=== PATIENT | female | born 1970 | race Caucasian/White ===

== ENCOUNTER → 2018-02-03 07:08 | Outpatient (CLI) | payer OTHER, SELFPAY ==
--- NOTE | 2018-02-03 11:09 | STRESSREP ---
Stress Test Report Date: 02/03/2018 Procedure: Exercise tolerance test/imaging study Indications: Chest pain Consent: Per the patient Procedure: The patient exercised on a Jaxson protocol for 7 minutes completing Stage II and 1 minute of Stage III achieving a peak heart rate of 169 bpm (98 % predicted maximal heart rate) with a peak blood pressure 164/72 mmHg and a peak MET capacity of 8 METs. The baseline ECG demonstrated sinus bradycardia. The peak exercise ECG demonstrated no obvious ECG changes. There was a rare PVC during exercise and recovery. The functional capacity was considered average. There was no complaint of chest discomfort during exercise or recovery. The examination was discontinued secondary to dyspnea. Impression: 1. Technically adequate (percent predicted maximal heart rate greater than 85%) exercise tolerance test 2. Peak exercise ECG no obvious ECG changes 3. There was a rare PVC during exercise and recovery. 4. Nuclear images pending Myocardial perfusion imaging study: Technique: The patient was injected with 13.5 mCi of technetium 99m Cardiolite and subsequently rest SPECT Cardiolite nuclear imaging was obtained in the horizontal long, vertical long, and short axis views. The patient exercised on a Jaxson protocol for 7 minutes completing Stage II and 1 minute of Stage III achieving a peak heart rate of 169 bpm (98 % predicted maximal heart rate) with a peak blood pressure 164/72 mmHg and a peak MET capacity of 8 METs. The patient was injected with 44.6 mCi of technetium 99m Cardiolite and subsequently stress SPECT Cardiolite nuclear imaging was obtained in the horizontal long, vertical long, and short axis views. A gated Cardiolite study at peak stress was obtained. Interpretation: Rest and stress SPECT Cardiolite nuclear imaging status post realignment, normalization, and attenuation correction, demonstrates appearance at rest of an area of diminished tracer uptake in portions of the distal anterior, mid to distal anteroseptal, anterior apical, and septal apical segments which appear to improved/normalized following stress. There are similar type findings on the resting and stress polar map images.. There is end systolic thickening and brightening. The gated Cardiolite study demonstrates myocardial thickening and inward wall motion. The reported LVEF is 65 %. Impression: 1. Rest and stress SPECT Cardiolite nuclear imaging demonstrate resting areas of diminished myocardial perfusion/tracer uptake which appeared improved/normalized following stress appearing compatible with shifting soft tissue attenuation/artifact with no myocardial perfusion changes consider diagnostic for stress-induced myocardial ischemia or previous myocardial injury/infarction. 2. The gated Cardiolite study reports an LVEF of 65 %. This note was generated with [employer] software. It may contain incorrect words, spelling, and punctuation that were not noted in checking the note before signing.
--- NOTE | 2018-02-03 11:14 | STRESSREP_ITS ---
Stress Test Report Date: 02/03/2018 Procedure: Exercise tolerance test/imaging study Indications: Chest pain Consent: Per the patient Procedure: The patient exercised on a Jaxson protocol for 7 minutes completing Stage II and 1 minute of Stage III achieving a peak heart rate of 169 bpm (98 % predicted maximal heart rate) with a peak blood pressure 164/72 mmHg and a peak MET capacity of 8 METs. The baseline ECG demonstrated sinus bradycardia. The peak exercise ECG demonstrated no obvious ECG changes. There was a rare PVC during exercise and recovery. The functional capacity was considered average. There was no complaint of chest discomfort during exercise or recovery. The examination was discontinued secondary to dyspnea. Impression: 1. Technically adequate (percent predicted maximal heart rate greater than 85% ) exercise tolerance test 2. Peak exercise ECG no obvious ECG changes 3. There was a rare PVC during exercise and recovery. 4. Nuclear images pending Myocardial perfusion imaging study: Technique: The patient was injected with 13.5 mCi of technetium 99m Cardiolite and subsequently rest SPECT Cardiolite nuclear imaging was obtained in the horizontal long, vertical long, and short axis views. The patient exercised on a Jaxson protocol for 7 minutes completing Stage II and 1 minute of Stage III achieving a peak heart rate of 169 bpm (98 % predicted maximal heart rate) with a peak blood pressure 164/72 mmHg and a peak MET capacity of 8 METs. The patient was injected with 44.6 mCi of technetium 99m Cardiolite and subsequently stress SPECT Cardiolite nuclear imaging was obtained in the horizontal long, vertical long, and short axis views. A gated Cardiolite study at peak stress was obtained. Interpretation: Rest and stress SPECT Cardiolite nuclear imaging status post realignment, normalization, and attenuation correction, demonstrates appearance at rest of an area of diminished tracer uptake in portions of the distal anterior, mid to distal anteroseptal, anterior apical, and septal apical segments which appear to improved/normalized following stress. There are similar type findings on the resting and stress polar map images.. There is end systolic thickening and brightening. The gated Cardiolite study demonstrates myocardial thickening and inward wall motion. The reported LVEF is 65 %. Impression: 1. Rest and stress SPECT Cardiolite nuclear imaging demonstrate resting areas of diminished myocardial perfusion/tracer uptake which appeared improved/ normalized following stress appearing compatible with shifting soft tissue attenuation/artifact with no myocardial perfusion changes consider diagnostic for stress-induced myocardial ischemia or previous myocardial injury/infarction. 2. The gated Cardiolite study reports an LVEF of 65 %. This note was generated with [employer] software. It may contain incorrect words, spelling, and punctuation that were not noted in checking the note before signing.
== END ==
PROVIDERS: Family Provider Family Medicine; PCP Family Medicine; Visit Provider Family Medicine
DX: R07.89 Other chest pain (principal)
CPT/HCPCS: 78452; 93017; A9500; A4216

== ENCOUNTER → 2018-02-08 09:34 | Outpatient (CLI) | payer OTHER, SELFPAY ==
--- NOTE | 2018-02-08 09:43 | BI_ITS ---
MAMMOGRAPHY - BILATERAL DIAGNOSTIC REASON FOR EXAM: Female, 47 years old. Lateral breast pain. PERTINENT HISTORY: Sister with breast cancer. Mother with breast cancer. TECHNIQUE: Digital bilateral breast marycarmen (3D mammographic acquisition) in the CC and MLO projections. 2-D mediolateral oblique (MLO) and craniocaudad (CC) views of both breasts were obtained. CAD: Full Field Digital Mammography with Computer Added Detection was performed. COMPARISON: Comparison is made with prior study dated June 22, 2016 and July 10, 2014. FINDINGS: Breast Composition: The breasts are heterogeneously dense, which may obscure small masses. There are no dominant masses or suspicious calcifications. No other significant abnormalities are identified. There has been no significant change since the prior study. BI/DIAG MAMM W/CAD, BILAT IMPRESSION: Stable bilateral diagnostic mammogram. With the patient's history of left lateral breast pain, correlation with ultrasound is recommended. ASSESSMENT CATEGORY: BIRADS Category 0: Incomplete. Need additional imaging evaluation. A letter regarding these results will be sent to the patient by the facility within 30 days. Approximately 10% of breast cancers are not detected by mammography. A normal mammogram should not delay biopsy of a clinically suspicious abnormality. Electronically Signed: Flakito Macias MD at 11:18 EDT Tel [phone], Service support ,
--- NOTE | 2018-02-08 10:18 | US_ITS ---
STUDY: ULTRASOUND BREAST - LEFT REASON FOR EXAM: Female, 47 years old. Lateral breast pain. TECHNIQUE: Axial and longitudinal images of the LEFT breast were performed with a high resolution ultrasound transducer. COMPARISON: Comparison is made with prior mammogram done earlier today. FINDINGS: LEFT Breast: The upper outer quadrant of the left breast was examined by ultrasound. There are 4 subcentimeters cysts at the 2 and 3:00 position of the breast. The largest cyst measures 6 mm x 6 mm x 3 mm. Routine mammographic follow-up is recommended. US/Breast Limited Unilateral IMPRESSION: 4 subcentimeter cysts are seen in the upper outer quadrant of the left breast. ASSESSMENT CATEGORY: BIRADS Category 2: Benign. A letter regarding these results will be sent to the patient by the facility within 30 days. Electronically Signed: Flakito Macias MD at 15:10 EDT Tel [phone], Service support ,
== END ==
PROVIDERS: Family Provider Family Medicine; PCP Family Medicine; Visit Provider Obstetrics & Gynecology
DX: N64.4 Mastodynia (principal); Z80.3 Family history of malignant neoplasm of breast
CPT/HCPCS: 76642; 77062; 77066; G0279

== ENCOUNTER → 2018-06-19 20:10 | Outpatient (CLI) | payer OTHER, SELFPAY ==
--- NOTE | 2018-06-19 | EMB_PTH ---
PATIENT: HUMERA WINSLOW LOC: [facility] U#:[id number] AGE/SX: 55/F ROOM: RE06/19/[address]: Dr. Ford Stroud MD : 1970 BED: DIS: SPEC #: [id number] RECD: 06/19/18 17:11 STATUS: AYDEE PATRICIA #: [id number] ABIODUN: 06/19/18 00:[address]: Ford Stroud DEPT: SURGICAL PATHOLOGY RECD BY: Say Luna ENTERED: 06/20/18 11:01 SP TYPE: ENDOM BX/C BARNEY DR: Dr. Ford Davis MD Tissues: Endometrium, NOS Procedures: Surgery Specimen Level IV HEADER OPERATION: Endometrial biopsy PRE-OP DIAGNOSIS: Abnormal uterine bleeding TISSUE SUBMITTED: Endometrial biopsy MICROSCOPIC DIAGNOSIS Endometrial biopsy: Proliferative endometrium. SJ:alesia 06/21/18 MICROSCOPIC DESCRIPTION Slides are reviewed. GROSS DESCRIPTION Received in fixative is one container labeled with the patient's name and designated EM biopsy. The specimen consists of multiple fragments of hemorrhagic soft tissue that in aggregate measure 2 x 1.5 x 0.1 cm. The specimen is totally submitted in one cassette. / SJ:rg 06/20/18 TC:4 CPT: 83568
[2018-06-23 11:05] LABS: HPV Reflexed? NOT INDICATED
== END ==
PROVIDERS: Family Provider Family Medicine; PCP Family Medicine; Referring Provider Obstetrics & Gynecology; Visit Provider Obstetrics & Gynecology
DX: Z12.4 Encounter for screening for malignant neoplasm of cervix (principal); N93.9 Abnormal uterine and vaginal bleeding, unspecified
CPT/HCPCS: 87624; 88175; 88305; G0145

== ENCOUNTER → 2018-07-18 09:34 | Outpatient (CLI) | payer OTHER, SELFPAY ==
[2018-07-11 10:00] VITALS: BMI 32.3
--- NOTE | 2018-07-18 09:37 | US_ITS ---
STUDY: ULTRASOUND BREAST - LEFT REASON FOR EXAM: Female, 48 years old. Pain in the left breast. Left breast fullness. TECHNIQUE: Axial and longitudinal images of the LEFT breast were performed with a high resolution ultrasound transducer. COMPARISON: Comparison is made with prior mammogram done earlier in the day as well as prior ultrasound of the left breast dated February 08, 2018. FINDINGS: LEFT Breast: Once again, there are 4 subcentimeters cysts in the upper outer quadrant of the left breast. The largest measures 7 mm x 6 mm x 3 mm. This is at the 2:00 position in the breast at 6 cm from the nipple. US/Breast Limited Unilateral IMPRESSION: Stable examination. Routine mammographic follow-up is recommended. ASSESSMENT CATEGORY: BIRADS Category 2: Benign. A letter regarding these results will be sent to the patient by the facility within 30 days. Electronically Signed: Flakito Macias MD at 11:24 EST Tel [phone], Service support ,
--- NOTE | 2018-07-18 09:39 | BI_ITS ---
MAMMOGRAPHY - UNILATERAL DIAGNOSTIC: LEFT BREAST REASON FOR EXAM: Female, 48 years old. Lateral left breast lump. PERTINENT HISTORY: Sister with breast cancer. Mother with breast cancer. Aunt with breast cancer. TECHNIQUE: Digital unilateral breast marycarmen (3D mammographic acquisition) in the CC and MLO projections. 2-D mediolateral oblique (MLO) and craniocaudad (CC) views of both breasts were obtained. CAD: Full Field Digital Mammography with Computer Added Detection was performed. COMPARISON: Comparison is made with prior mammogram dated February 08, 2018 and prior sonogram of the left breast dated February 08, 2018. FINDINGS: Breast Composition: The breasts are heterogeneously dense, which may obscure small masses. There are no dominant masses or suspicious calcifications. No other significant abnormalities are identified. There has been no significant change since the prior study. BI/DIAG MAMM W/CAD, UNILAT IMPRESSION: Stable unilateral diagnostic mammogram. With the patient's history of a left breast lump, correlation with ultrasound is recommended. ASSESSMENT CATEGORY: BIRADS Category 0: Incomplete. Need additional imaging evaluation. A letter regarding these results will be sent to the patient by the facility within 30 days. Approximately 10% of breast cancers are not detected by mammography. A normal mammogram should not delay biopsy of a clinically suspicious abnormality. Electronically Signed: Flakito Macias MD at 12:37 EST Tel [phone], Service support ,
--- OUTSIDE RECORDS SUMMARY | 2018-08-29 23:40 | XMS RPT_ITS ---
:1970 Author Organization [place] Support Name Relationship Address Phone EDGAR WINSLOW Unavailable [address] [place] [address] RD + [place] [address] UE Unavailable Unavailable Unavailable EDGAR WINSLOW Unavailable [address] [place] [address] RD + [place] [address] UE Unavailable Unavailable Unavailable EDGAR WINSLOW Unavailable [address] + [place] [address] UE Unavailable Unavailable Unavailable UE Unavailable Unavailable Unavailable ARMIN CAMPUZANO Unavailable [address] + [place] [address] GOLDYEDGAR Unavailable [address] + [place] [address] UE Unavailable Unavailable Unavailable TATIANNAARLEY BECKHY Unavailable [address] + [place] [address] GOLDYEDGAR Unavailable [address] + [place] [address] UE Unavailable Unavailable Unavailable ARLEY CAMPUZANOHY Unavailable [address] + [place] [address] GOLDYEDGAR Unavailable [address] + [place] [address] UE Unavailable Unavailable Unavailable TATIANNAARLEY BECKHY Unavailable [address] + [place] [address] GOLDY IMELDAKeron Unavailable [address] + [place] [address] UE Unavailable Unavailable Unavailable Care Team Providers Name Role Phone Ford Davis Attending Unavailable Ford Davis Referring Unavailable Ford Davis Primary Care Unavailable Cynthia Finley Attending Unavailable Ford Davis Primary Care Unavailable Terrell Ashby Attending Unavailable Ford Stroud Attending Unavailable Ford Davis Primary Care Unavailable Ford Stroud Referring Unavailable Josue Parikh Attending Unavailable Ford Stroud Referring Unavailable Josue Parikh Attending Unavailable Josue Parikh Referring Unavailable Ford Davis Primary Care Unavailable Josue Parikh Attending Unavailable Ford Davis Referring Unavailable PROBLEMS PROBLEMS DATE TYPE CONDITION / CODE ATTENDING STATUS SOURCE 07/11/2018 Unknown N63.20 - Josue Parikh Active [facility] Unspecified lump Community in the left Hospital breast, Repository unspecified quadrant / N63.20(ICD-10) 07/11/2018 Unknown R22.30 - Josue Parikh Active [facility] Localized Community swelling, mass Hospital and lump, Repository unspecified upper limb / R22.30(ICD-10) 06/20/2018 Unknown Z12.4 - Encounter Ford Stroud Active Gene for screening for [facility] malignant Hospital neoplasm of Repository cervix / Z12.4(ICD-10) 02/03/2018 Unknown R07.89 - Other Ryan Ford Active Gene chest pain / Community R07.89(ICD-10) Hospital Repository PROCEDURES PROCEDURES No Procedure Records FoundRESULTS RESULTS SURGERY VISIT REPORT Observed: 07/25/2018 Status: F Source: [place] 1:25 PM [facility] REPOSITORY [facility] [address] [place] [address] OFFICE VISIT Date of Service: 07/20/18 MR#: [id number] Acct: [id number] Name: GRISEL WINSLOW Rep #: [id number] : 1970 Provider: Josue Parikh MD Age/Sex: 48/F Location: [facility] Status: Signed Intake Vital Signs07/20/18 Body Mass Index (BMI) 32.3 Intake Visit Reasons: FU Mammo/US 07/18 Lt Breast Head Of Geography Required: No Is patient in pain?: No Allergies latex Allergy (Mild, Verified 07/20/18 13:47) redness skin irritation Medications NK 07/11/18 [History Confirmed 07/20/18] [facility] Medical History Left breast lump (Acute) Surgical History No history of previous surgery (Acute) Family History Mother Arthritis Breast cancer Heart disease Hypertension CVA (cerebral vascular accident) Sister Breast cancer Diabetes Aunt Breast cancer Sister Cancer ovarian cancer Father Cancer prostate skin Grandfather Cancer prostate Brother Hypertension Heart disease Social History Smoking Status: Former smoker alcohol intake: never substance use type: does not use HPI HPI HPI: GRISEL WINSLOW, is a 48 F who presents to the office today for follow-up from an ultrasound of her left breast completed at [facility]. Findings showed: LEFT Breast: Once again, there are 4 subcentimeters cysts in the upper outer quadrant of the left breast. The largest measures 7 mm x 6 mm x 3 mm. This is at the 2:00 position in the breast at 6 cm from the nipple. States that she thinks she understands why she was having increased breast pain because she was drinking more caffeinated coffee unexpectedly. Since going back to decaf coffee this discomfort has improved. Exam Chest Other: Palpation of both breasts revealed normal lumpy bumpy patterns in both the upper outer quadrants of each breast. This is mostly normal fibroglandular tissue and I do not feel anything that feels abnormal or hard. The area in question at the 2 o'clock position shows that there is cyst in this area which I cannot really appreciate because there is so small. There is no nipple discharge. Axillary exam is negative bilaterally supra clavicular exam is negative by lab Assessment AND Plan Problems 1. Pain of left breast N64.4 Plan At this point I do not think that there is any surgical interventions that need to be performed. If the area in the upper outer quadrant of her left breast increases in pain then it probably would be warranted we did attempt to do an ultrasound- guided cyst aspiration. But since she is improving in her discomfort and all of her imaging and physical exam have been negative I think we can observe her at this time. Coding Level of Care Code Off vis,est,level 2 Diagnoses Pain of left breast N64.4 07/25/18 1325 <Electronically signed by Josue Parikh MD> Date Josue Parikh MD Cosigner Signature: Date (if applicable) CC: Ford Davis MD; Ford Stroud MD SURGERY VISIT REPORT Observed: 07/21/2018 Status: F Source: [place] 10:27 AM [facility] REPOSITORY [facility] [address] [place] [address] OFFICE VISIT Date of Service: 07/11/18 MR#: [id number] Acct: [id number] Name: GRISEL WINSLOW Rep #: [id number] : 1970 Provider: Josue Parikh MD Age/Sex: 48/F Location: [facility] Status: Signed Intake Vital Signs07/11/18 Height 5 ft 8 in 07/11/18 Weight: 213 lb Intake Visit Reasons: Lt Breast Fullness 2x3 cm lump US 02/08 [facility] Head Of Geography Required: No Is patient in pain?: No Allergies latex Allergy (Mild, Verified 07/20/18 13:47) redness skin irritation Medications NK 07/11/18 [History Confirmed 07/20/18] [facility] Medical History Left breast lump (Acute) Surgical History No history of previous surgery (Acute) Family History Mother Arthritis Breast cancer Heart disease Hypertension CVA (cerebral vascular accident) Sister Breast cancer Diabetes Aunt Breast cancer Sister Cancer ovarian cancer Father Cancer prostate skin Grandfather Cancer prostate Brother Hypertension Heart disease Social History Smoking Status: Former smoker alcohol intake: never substance use type: does not use HPI HPI HPI: GRISEL WINSLOW, is a 48 F who presents to the office today for evaluation of left breast fullness. Patient was seen by her TREATING PLANT SUPERVISOR (Dr. Stroud) who felt in the upper outer quadrant of her left breast a fullness. She had previous mammogram and ultrasound studies done on her breast in January of this year. These were read as BI-RADS Category 2 benign and routine mammographic follow-up was recommended. ROS General General: Yes fatigue; no weight change, appetite, colon cancer, breast cancer or weakness HEENT HEENT: No difficulty swallowing, eye injury, eye surgery, swollen glands or hoarseness Endo Endocrine: No thyroid disease, diabetes mellitus, thyroid cancer, Hair loss, heat intolerance or cold intolerance Skin Skin: No rash or changing moles Breast Breast: Yes left breast lump; no right breast lump, nipple discharge, breast pain, abnormal mammogram, abnormal US or breast enlargement Musc Musculoskeletal: Yes back problems; no arthritis, rheumatoid arthritis, gout or joint pain Cardio Cardiovascular: Yes murmur; no pacemaker, heart disease, atrial fibrillation, high blood pressure, heart attack, heart stent, palpitations, shortness of breat with exertion or chest pain Psych Psychiatric: Yes anxiety; no depression or hearing voices Resp Respiratory: No shortness of breath, No sleep apnea, No cough, No COPD, No asthma, No emphysema, No wheezing Gastro Gastrointestinal: No abdominal pain, No nausea or vomiting, No diarrhea, No constipation, No blood in stool, No acid reflux, Yes hemorrhoids, No ulcers, No gallbladder problem, No black,tarry stools Hiram Hematologic: No blood thinners, No blood disorders, No bleeding, No anemia, No blood clots Neuro Neurologic: No system reviewed and no additional complaints, except as docu, No as per HPI, No abnormal walking, No abnormal hearing, No abnormal movements, No abnormal speech, No behavioral changes, No burning sensations, No confusion, No seizure-like activity, No unsteadiness, No dizziness, No localized weakness, No frequent falls, No headache(s), No lack of coordination, No loss of vision, No memory loss, Yes numbness, No other visual disturbances, No radiating pain, No restless legs, No sensory deficit, No fainting, Yes tingling, No tremor(s), No weakness, No other Exam HENMT Head: normal to inspection, normocephalic, atraumatic Mouth: moist mucous membranes, oropharynx normal Eyes General: appearance normal, both eyes and all related structures Sclera: sclerae normal Neck Neck: no lymphadenopathy noted, trachea midline Neck mass: No Thyroid: thyroid normal Lymphatic: no lymphadenopathy noted Chest Breast inspection: normal inspection of the breasts Breast Palpation: No nipple discharge Other: She has fibroglandular tissue in the upper outer quadrants of the breasts bilaterally. The tenderness that she is experiencing I cannot actually feel a lymph node and nor can I feel any hard abnormalities. However there is significant amount of fibroglandular tissue in the left upper outer quadrant of her breast. Resp Other: Respiratory Exam: Deferred Cardio Heart Sounds: murmur Other: Cardiac Exam: Deferred GI Other: GI Exam: Deferred Other: Rectal Exam: Deferred Extrem Other: Extremity Exam: Deferred Assessment AND Plan Problems 1. Left breast mass N63.20 Plan I am going to repeat mammograms and ultrasounds in the left breast area. We will compare these to her previous ones, To assess whether or not a biopsy is warranted at this time. Coding Level of Care Code Off vis,new,level 3 Diagnoses Left breast mass N63.20 07/21/18 1027 <Electronically signed by Josue Parikh MD> Date Josue Parikh MD Cosign Signature: Date (if applicable) CC: Ford Davis MD; Ford Stroud MD DIAG MAMM W/CAD, Observed: 07/18/2018 Status: F Source: [facility] 9:39 AM [facility] REPOSITORY [facility] Imaging Services [address] [place] [address] DIAG MAMM W/CAD, UNILAT MR#: [id number] Acct: [id number] Name: GRISEL WINSLOW Rep #: [id number] : 1970 F 48 From: Flakito Macias MD PCP: Ford Davis MD Status: [facility] CLI Study: DIAG MAMM W/CAD, UNILAT Date of Exam: 07/18/18 Exam# [id number] Ordering Dr: Josue Parikh MD MAMMOGRAPHY - UNILATERAL DIAGNOSTIC: LEFT BREAST REASON FOR EXAM: Female, 48 years old. Lateral left breast lump. PERTINENT HISTORY: Sister with breast cancer. Mother with breast cancer. Aunt with breast cancer. TECHNIQUE: Digital unilateral breast marycarmen (3D mammographic acquisition) in the CC and MLO projections. 2-D mediolateral oblique (MLO) and craniocaudad (CC) views of both breasts were obtained. CAD: Full Field Digital Mammography with Computer Added Detection was performed. COMPARISON: Comparison is made with prior mammogram dated February 08, 2018 and prior sonogram of the left breast dated February 08, 2018. FINDINGS: Breast Composition: The breasts are heterogeneously dense, which may obscure small masses. There are no dominant masses or suspicious calcifications. No other significant abnormalities are identified. There has been no significant change since the prior study. BI/DIAG MAMM W/CAD, UNILAT IMPRESSION: Stable unilateral diagnostic mammogram. With the patient's history of a left breast lump, correlation with ultrasound is recommended. ASSESSMENT CATEGORY: BIRADS Category 0: Incomplete. Need additional imaging evaluation. A letter regarding these results will be sent to the patient by the facility within 30 days. Approximately 10% of breast cancers are not detected by mammography. A normal mammogram should not delay biopsy of a clinically suspicious abnormality. Electronically Signed: Flakito Macias MD at 12:37 EST Tel [phone], Service support , CC: Josue Parikh MD; Ford Davis MD Data Systems Analyst: Signed BREAST LIMITED Observed: 07/18/2018 Status: F Source: [place] 9:37 AM [facility] REPOSITORY [facility] Imaging Services [facility] [place] [address] Breast Limited Unilateral MR#: [id number] Acct: [id number] Name: GRISEL WINSLOW Rep #: [id number] : 1970 F 48 From: Flakito Macias MD PCP: Ford Davis MD Status: REG CLI Study: Breast Limited Unilateral Date of Exam: 07/18/18 Exam# [id number] Ordering Dr: Josue Parikh MD STUDY: ULTRASOUND BREAST - LEFT REASON FOR EXAM: Female, 48 years old. Pain in the left breast. Left breast fullness. TECHNIQUE: Axial and longitudinal images of the LEFT breast were performed with a high resolution ultrasound transducer. COMPARISON: Comparison is made with prior mammogram done earlier in the day as well as prior ultrasound of the left breast dated February 08, 2018. FINDINGS: LEFT Breast: Once again, there are 4 subcentimeters cysts in the upper outer quadrant of the left breast. The largest measures 7 mm x 6 mm x 3 mm. This is at the 2:00 position in the breast at 6 cm from the nipple. US/Breast Limited Unilateral IMPRESSION: Stable examination. Routine mammographic follow-up is recommended. ASSESSMENT CATEGORY: BIRADS Category 2: Benign. A letter regarding these results will be sent to the patient by the facility within 30 days. Electronically Signed: Flakito Macias MD at 11:24 EST Tel [phone], Service support , CC: Josue Parikh MD; Ford Davis MD Data Systems Analyst: Signed PAP IG W/REFLEX HR Collected: 06/19/2018 Status: F Source: [place] HPV [place] 2:30 PM [facility] REPOSITORY Order Comment: CYTOLOGY INFORMATION: - CLINICAL INFORMATION: - DATE LMP/MENOPAUSE: 05/29/18 LMP - COLLECTION VIAL: Thin Prep Vial - SURGICAL FORCEPS FABRICATOR SOURCE: CERVICAL/ENDOCERVICAL - COLLECTION TECHNIQUE: BRUSH/SPATULA Specimen Comment: [id number] Specimen Comment: Source.............Cervix;Endocervix Specimen Comment: LMP / Prev Treat...[id number] Specimen Comment: No. of containers..01 ThinPrep Vial TYPE CODE TESTS RESULT OUT OF RANGE REFERENCE UNITS LAB L7400.0800 . Normal DIAGN Comment Result Comment: NEGATIVE FOR INTRAEPITHELIAL LESION AND MALIGNANCY. CELLULAR CHANGES ASSOCIATED WITH ATROPHY ARE PRESENT. LAB L7400.0900 . Normal ADEQ Comment Result Comment: Satisfactory for evaluation. Endocervical and/or squamous metaplastic cells (endocervical component) are present. LAB L7400.1400 . Normal PERFORM Comment Result Comment: Carla Frances, Airplane Dispatch Clerk (ASCP) LAB L7400.2575 . Normal TEST METHOD Comment Result Comment: This liquid based ThinPrep(R) pap test was screened with the use of an image guided system. LAB L7400.2600 . Normal . COMM LAB L7400.2700 . Normal PAPSMR Comment Result Comment: The Pap smear is a screening test designed to aid in the detection of premalignant and malignant conditions of the uterine cervix. It is not a diagnostic procedure and should not be used as the sole means of detecting cervical cancer. Both false-positive and false-negative reports do occur. LAB L7400.2800 . Normal HPV RFLX Comment Result Comment: The HPV DNA reflex criteria were not met with this specimen result therefore, no HPV testing was performed. Performed at: [address] [id number] Tool Die Maker: Isadora Hare MD, Phone: [phone] Performed By: #### L7400.0357 #### [facility] (refer to report for specific site) refer to report for address and phone number ENDOMETRIAL BX/CURETTINGS Observed: 06/19/2018 Status: F Source: [place] 12:00 AM [facility] REPOSITORY Patient: GRISEL WINSLOW : 1970 (48/F) Acct Num: [id number] Phys: Luanne VALLES,Ford Unit Num: [id number] Loc: [facility] Specimen: [id number] Received: 06/19/181710 Spec Type: ENDOM BX/C TISSUES 1 TISSUES: Endometrium, NOS GROSS DESCRIPTION Received in fixative is one container labeled with the patient's name and designated EM biopsy. The specimen consists of multiple fragments of hemorrhagic soft tissue that in aggregate measure 2 x 1.5 x 0.1 cm. The specimen is totally submitted in one cassette. / SARAH:[place] 06/20/18 TC:4 CPT: 46326 HEADER OPERATION: Endometrial biopsy PRE-OP DIAGNOSIS: Abnormal uterine bleeding TISSUE SUBMITTED: Endometrial biopsy MICROSCOPIC DESCRIPTION Slides are reviewed. MICROSCOPIC DIAGNOSIS Endometrial biopsy: Proliferative endometrium. SJ:[place] 06/21/18 Signed Tariq Finney 06/21/18 <signature on file> Performed By: #### PEMB #### [facility] [address] [place] [address]. [place], [address] BREAST LIMITED Observed: 02/08/2018 Status: F Source: [facility] 10:18 AM [facility] REPOSITORY [facility] Imaging Services [address] [place] [address] Breast Limited Unilateral MR#: [id number] Acct: [id number] Name: GRISEL WINSLOW Rep #: [id number] : 1970 F 47 From: Flakito Macias MD PCP: Ford Davis MD Status: REG CLI Study: Breast Limited Unilateral Date of Exam: 02/08/18 Exam# [id number] Ordering Dr: Cynthia Finley MD STUDY: ULTRASOUND BREAST - LEFT REASON FOR EXAM: Female, 47 years old. Lateral breast pain. TECHNIQUE: Axial and longitudinal images of the LEFT breast were performed with a high resolution ultrasound transducer. COMPARISON: Comparison is made with prior mammogram done earlier today. FINDINGS: LEFT Breast: The upper outer quadrant of the left breast was examined by ultrasound. There are 4 subcentimeters cysts at the 2 and 3:00 position of the breast. The largest cyst measures 6 mm x 6 mm x 3 mm. Routine mammographic follow-up is recommended. US/Breast Limited Unilateral IMPRESSION: 4 subcentimeter cysts are seen in the upper outer quadrant of the left breast. ASSESSMENT CATEGORY: BIRADS Category 2: Benign. A letter regarding these results will be sent to the patient by the facility within 30 days. Electronically Signed: Flakito Macias MD at 15:10 EDT Tel [phone], Service support , CC: Cynthia Finley MD; Ford Davis MD Data Systems Analyst: Signed DIAG MAMM W/CAD, Observed: 02/08/2018 Status: F Source: [place] 9:43 AM [facility] REPOSITORY [facility] Imaging Services [address] [place] [address] DIAG MAMM W/CAD, BILAT MR#: [id number] Acct: [id number] Name: GRISEL WINSLOW Rep #: [id number] : 1970 F 47 From: Flakito Macias MD PCP: Ford Davis MD Status: REG CLI Study: DIAG MAMM W/CAD, BILAT Date of Exam: 02/08/18 Exam# [id number] Ordering Dr: Cynthia Finley MD MAMMOGRAPHY - BILATERAL DIAGNOSTIC REASON FOR EXAM: Female, 47 years old. Lateral breast pain. PERTINENT HISTORY: Sister with breast cancer. Mother with breast cancer. TECHNIQUE: Digital bilateral breast marycarmen (3D mammographic acquisition) in the CC and MLO projections. 2-D mediolateral oblique (MLO) and craniocaudad (CC) views of both breasts were obtained. CAD: Full Field Digital Mammography with Computer Added Detection was performed. COMPARISON: Comparison is made with prior study dated June 22, 2016 and July 10, 2014. FINDINGS: Breast Composition: The breasts are heterogeneously dense, which may obscure small masses. There are no dominant masses or suspicious calcifications. No other significant abnormalities are identified. There has been no significant change since the prior study. BI/DIAG MAMM W/CAD, BILAT IMPRESSION: Stable bilateral diagnostic mammogram. With the patient's history of left lateral breast pain, correlation with ultrasound is recommended. ASSESSMENT CATEGORY: BIRADS Category 0: Incomplete. Need additional imaging evaluation. A letter regarding these results will be sent to the patient by the facility within 30 days. Approximately 10% of breast cancers are not detected by mammography. A normal mammogram should not delay biopsy of a clinically suspicious abnormality. Electronically Signed: Flakito Macias MD at 11:18 EDT Tel [phone], Service support , CC: Cynthia Finley MD; Ford Davis MD Data Systems Analyst: Signed STRESS REPORT Observed: 02/03/2018 Status: F Source: [place] 11:14 AM [facility] REPOSITORY [facility] Cardiovascular Services [address] [place] [address] MR#: [id number] Acct: [id number] Name: GOLDYGRISEL Alana Rep #: [id number] : 1970 47 From: Terrell Ashby MD Primary Care: Ford Davis MD Status: REG CLI Ordering Dr: Sex: F C Stress Test Report Date: 02/03/2018 Procedure: Exercise tolerance test/imaging study Indications: Chest pain Consent: Per the patient Procedure: The patient exercised on a Jaxson protocol for 7 minutes completing Stage II and 1 minute of Stage III achieving a peak heart rate of 169 bpm (98 % predicted maximal heart rate) with a peak blood pressure 164/72 mmHg and a peak MET capacity of 8 METs. The baseline ECG demonstrated sinus bradycardia. The peak exercise ECG demonstrated no obvious ECG changes. There was a rare PVC during exercise and recovery. The functional capacity was considered average. There was no complaint of chest discomfort during exercise or recovery. The examination was discontinued secondary to dyspnea. Impression: 1. Technically adequate (percent predicted maximal heart rate greater than 85%) exercise tolerance test 2. Peak exercise ECG no obvious ECG changes 3. There was a rare PVC during exercise and recovery. 4. Nuclear images pending Myocardial perfusion imaging study: Technique: The patient was injected with 13.5 mCi of technetium 99m Cardiolite and subsequently rest SPECT Cardiolite nuclear imaging was obtained in the horizontal long, vertical long, and short axis views. The patient exercised on a Jaxson protocol for 7 minutes completing Stage II and 1 minute of Stage III achieving a peak heart rate of 169 bpm (98 % predicted maximal heart rate) with a peak blood pressure 164/72 mmHg and a peak MET capacity of 8 METs. The patient was injected with 44.6 mCi of technetium 99m Cardiolite and subsequently stress SPECT Cardiolite nuclear imaging was obtained in the horizontal long, vertical long, and short axis views. A gated Cardiolite study at peak stress was obtained. Interpretation: Rest and stress SPECT Cardiolite nuclear imaging status post realignment, normalization, and attenuation correction, demonstrates appearance at rest of an area of diminished tracer uptake in portions of the distal anterior, mid to distal anteroseptal, anterior apical, and septal apical segments which appear to improved/normalized following stress. There are similar type findings on the resting and stress polar map images.. There is end systolic thickening and brightening. The gated Cardiolite study demonstrates myocardial thickening and inward wall motion. The reported LVEF is 65 %. Impression: 1. Rest and stress SPECT Cardiolite nuclear imaging demonstrate resting areas of diminished myocardial perfusion/tracer uptake which appeared improved/normalized following stress appearing compatible with shifting soft tissue attenuation/artifact with no myocardial perfusion changes consider diagnostic for stress-induced myocardial ischemia or previous myocardial injury/infarction. 2. The gated Cardiolite study reports an LVEF of 65 %. This note was generated with [employer] software. It may contain incorrect words, spelling, and punctuation that were not noted in checking the note before signing. 02/03/18 1114 <Electronically signed by Terrell Ashby MD> Date Terrell Ashby MD CC: Ford Davis MD Date Dictated: 02/03/181108 Date Transcribed: 02/03/181108 Data Systems Analyst: PM Signed ALLERGIES ALLERGIES DATE TYPE / CODE NAME / CODE REACTION SEVERITY SOURCE 07/20/2018 Drug latex/[id number] redness skin [facility] Allergy/4160 8921(RXNORM) [facility] [address](SNOMED Repository CT) ENCOUNTERS ENCOUNTERS ADMIT/DISCHARGE ACCOUNT ADMITTING ENCOUNTER LOCATION SOURCE NUMBER CLASS 07/20/2018/ [id number] Ambulatory BMSBuilding:B Gene 8 7 [facility] Repository 07/18/2018 [id number] Ambulatory Gene Gene 9 [facility] ing:OPUS Repository 07/11/2018/ [id number] Ambulatory BMSBuilding:B Gene 8 5 [facility] Repository 06/19/2018 [id number] [facility] ing:[facility] Repository 02/08/2018 [id number] Ambulatory [place] Gene 8 [facility] ing:OPUS Repository 02/03/2018 [id number] Ambulatory BMSBuilding:[facility] [place] [facility] Repository 02/03/2018 [id number] Ambulatory [facility] 2 [facility] ing:[facility] Repository PAYERS PAYERS ENCOUNTER GUARANTOR PAYER SUBSCRIBER SOURCE 07/20/2018 GRISEL Warner Primary KIP R Gene [id number] S Insurance:MEDICAL NUSSBAUMDOB: [facility] [id number] Number: Repository [id number]: [phone] [id number] [phone] Date:0764[place] [phone]: 07/20/2018 Secondary NOT GIVENUNK [place] Insurance:SELF PAY [facility] Number: Effective Repository Date:2018-07-20 07/18/2018 GRISEL Warner Primary KIP R [place] [id number] S Insurance:[facility] [id number] Number: Repository [id number]: 330 [id number] [phone] (HP) Date:7805-53-21TW [address] [place] [phone]: 07/18/2018 Secondary NOT GIVENUNK [place] Insurance:SELF PAY [facility] Number: Effective Repository Date:2018-07-11 07/11/2018 GRISEL A Primary KIP R [place] [id number] S Insurance:[facility]USS[facility]: [facility] [id number] Number: Repository [address]Tik: 330 [id number] [phone] (HP) Date:2560-32-79KF [address] [place] [phone]: 07/11/2018 Secondary NOT GIVENUNK [place] Insurance:SELF PAY [facility] Number: Effective Repository Date:2018-07-11 06/19/2018 GRISEL A Primary KIP R [place] [id number] S Insurance:[facility]: [facility] [id number] Number: Repository [id number]: 330 [id number] [phone] (HP) Date:0490-26-45BR [address] [place], [place] [phone]: 06/19/2018 Secondary NOT GIVENUNK [place] Insurance:SELF PAY [facility] Number: Effective Repository Date:2018-06-19 02/08/2018 Grisel A Primary Kip R [place] [id number] S Insurance:[facility] [id number] Number: Repository [id number]: 330 [id number] [phone] (HP) Date:2414-33-41AT [address] [place] [phone]: 02/08/2018 Secondary Grisel A [place] Insurance:[facility] PACKAGE NussbaumDOB: [facility] PLANPolicy Number: [id number] Hospital OOOEffective Repository Date:2018-02-06 02/08/2018 Tertiary NOT GIVENUNK Gene Insurance:SELF PAY [facility] Number: Effective Repository Date:2018-02-06 02/03/2018 Grisel A Primary Kip R [place] [id number] S Insurance:MEDICAL NussbaumDOB: [facility] [id number] Number: Repository [id number]: [phone] [id number] [phone] () Date:3365-45-77GK [address] [place] [phone]: 02/03/2018 Secondary Grisel A [place] Insurance:[facility] PACKAGE NussbaumDOB: [facility] PLANPolicy Number: [id number] Hospital OOOEffective Repository Date:2018-02-06 02/03/2018 Tertiary NOT GIVENUNK [place] Insurance:SELF PAY [facility] Number: Effective Repository Date:2018-02-03 02/03/2018 Grisel A Primary Kip R [place] [id number] S Insurance:MEDICAL NussbaumDOB: [facility] [id number] Number: Repository [id number]: [phone] [id number] [phone] (HP) Date:3086-70-90OL [address] [place] [phone]: 02/03/2018 Secondary Grisel A Gene Insurance:[facility] PACKAGE NussbaumDOB: [facility] PLANPolic Number: [id number] Hospital .Effective Repository Date:2018-01-30 02/03/2018 Tertiary NOT GIVENUNK [place] Insurance:SELF PAY [facility] Number: Effective Repository Date:2018-01-30
== END ==
PROVIDERS: Family Provider Family Medicine; PCP Family Medicine; Referring Provider Surgery; Visit Provider Surgery
DX: N63.20 Unspecified lump in the left breast, unspecified quadrant (principal); R22.30 Localized swelling, mass and lump, unspecified upper limb; N64.4 Mastodynia; Z80.3 Family history of malignant neoplasm of breast
CPT/HCPCS: 76642; 77061; 77065; G0279

== ENCOUNTER → 2018-09-07 12:26 | Outpatient (CLI) | payer OTHER, SELFPAY ==
[2018-07-20 13:47] VITALS: BMI 32.3
--- NOTE | 2018-09-07 13:00 | MRI_ITS ---
STUDY: BILATERAL BREAST MR WITHOUT AND WITH CONTRAST REASON FOR EXAM: Female, 48 years old. Left breast pain radiating into axilla. History of breast cancer. TECHNIQUE: Multi-sequence multi-echo imaging of both breasts was performed with a dedicated breast coil. T1-weighted and T2-weighted images were performed before the administration of contrast. T1-weighted images were also performed after the administration of 10 mL of Gadavist contrast intravenously without complications. COMPARISON: Left mammogram and left breast ultrasound dated July 18, 2018. Bilateral mammogram dated February 08, 2018. FINDINGS: RIGHT BREAST: The breast tissue is heterogeneously dense with mild background enhancement. There are a few small simple cysts. There is an extensive area of segmental non--mass enhancement in the lateral aspect of the breast, particularly in the left upper outer quadrant. As there is no mammographic or ultrasonographic abnormality, an MR-guided biopsy of this area is recommended for histologic confirmation. LEFT BREAST: The breast tissue is heterogeneously dense with moderate background enhancement. There are a few small simple cysts. There are no abnormal enhancing masses or areas of non-mass enhancement in the left breast. There are no enlarged or abnormal lymph nodes. There is no abnormality in the visualized regions of the chest or liver. MRI/Breast Bilateral W/O and W IMPRESSION: Extensive area of subsegmental non mass enhancement in the upper outer quadrant of the left breast. As there is no mammographic or ultrasonographic abnormality corresponding to this MR abnormality, an MRI-guided biopsy is recommended for histologic confirmation. CATEGORY: BIRADS Category 4: Suspicious - Biopsy Should Be Considered. A letter regarding these results will be sent to the patient by the facility within 30 days. Electronically Signed: Dave Aviles MD at 16:19 EST , Service support ,
--- OUTSIDE RECORDS SUMMARY | 2018-11-12 04:31 | XMS RPT_ITS ---
:1970 Author Organization OHIP Support Name Relationship Address Phone GOLDY EDGAR Unavailable [address] + [place] [address] UE Unavailable Unavailable Unavailable EDGAR WINSLOW Unavailable [address] + [place] [address] UE Unavailable Unavailable Unavailable EDGAR WINSLOW Unavailable [address] + [place] [address] UE Unavailable Unavailable Unavailable EDGAR WINSLOW Unavailable [address] + [place] [address] UE Unavailable Unavailable Unavailable GOLDYEDGAR ANDERSON Unavailable [address] + [place] [address] UE Unavailable Unavailable Unavailable UE Unavailable Unavailable Unavailable ARMIN CAMPUZANO Unavailable [address] + [place] [address] GOLDYEDGAR PETERSEN Unavailable [address] + [place] [address] UE Unavailable Unavailable Unavailable ARMIN CAMPUZANO Unavailable [address] + [place] [address] EDGAR WINSLOW Unavailable [address] + [place] [address] UE Unavailable Unavailable Unavailable ARMIN CAMPUZANO Unavailable [address] + [place] [address] EDGAR WINSLOW Unavailable [address] + [place] [address] UE Unavailable Unavailable Unavailable ARMIN CAMPUZANO Unavailable [address] + [place] [address] EDGAR WINSLOW Unavailable [address] + [place] [address] UE Unavailable Unavailable Unavailable Care Team Providers Name Role Phone Ford Stroud Attending Unavailable Weeman, Ford Referring Unavailable Davis, Ford Primary Care Unavailable Kati, Josue Attending Unavailable Davis, Ford Referring Unavailable Davis, Ford Attending Unavailable Davis, Ford Referring Unavailable Davis, Ford Primary Care Unavailable Cynthia Finley Attending Unavailable Davis, Ford Primary Care Unavailable Terrell Ashby Attending Unavailable Weeman, Ford Attending Unavailable Davis, Ford Primary Care Unavailable Weeman, Ford Referring Unavailable [place], Josue Attending Unavailable Weeman, Ford Referring Unavailable [place], Josue Attending Unavailable Kati, Josue Referring Unavailable Davis, Ford Primary Care Unavailable Kati, Josue Attending Unavailable Davis, Ford Referring Unavailable PROBLEMS PROBLEMS DATE TYPE CONDITION / CODE ATTENDING STATUS SOURCE 09/07/2018 Unknown N64.4 - Ford Stroud Active [facility] Mastodynia / Community N64.4(ICD-10) Hospital Repository 08/30/2018 Unknown N63.20 - Josue Parikh Active [facility] Unspecified lump Community in the left Hospital breast, Repository unspecified quadrant / N63.20(ICD-10) 07/11/2018 Unknown R22.30 - Josue Parikh Active [facility] Localized Community swelling, mass Hospital and lump, Repository unspecified upper limb / R22.30(ICD-10) 06/20/2018 Unknown Z12.4 - Encounter Ford Stroud Active [facility] for screening for [facility] malignant Hospital neoplasm of Repository cervix / Z12.4(ICD-10) 02/03/2018 Unknown R07.89 - Other Ford Davis Active [facility] chest pain / Community R07.89(ICD-10) Hospital Repository PROCEDURES PROCEDURES No Procedure Records FoundRESULTS RESULTS SURGERY VISIT REPORT Observed: 09/12/2018 Status: F Source: [place] 8:33 AM [facility] REPOSITORY [facility] [place] [address] OFFICE VISIT Date of Service: 09/12/18 MR#: [id number] Acct: [id number] Name: GRISEL WINSLOW Rep #: [id number] : 1970 Provider: Josue Parikh MD Age/Sex: 48/F Location: [facility] Status: Signed Intake Vital Signs09/12/18 Body Mass Index (BMI) 32.3 Intake Visit Reasons: Lt Breast Increased Pain Electrical/Instrument Technician Required: No Is patient in pain?: No Allergies latex Allergy (Mild, Verified 09/12/18 07:46) redness skin irritation Medications NK 07/11/18 [History Confirmed 09/12/18] PFSH Medical History Left breast lump (Acute) Surgical [...] to the office today for evaluation of an abnormal MRI to her breast. I originally saw this patient back in June 2018. She was complaining of left breast pain. Ultrasound of the left breast showed 4 subcentimeter cyst in the upper outer quadrant of her breast. Her pain persisted and her MEDICAL ESTHETICIAN physician ordered an MRI of her breast MRI was addendum and basically said that on the left side there was an extensive area of segmental non-mass enhancement on the lateral aspect of the breast. This was particularly in the left upper outer quadrant aspect of the breast. There was no mammographic or ultrasound abnormality identified and they recommended that an MRI guided biopsy of this area be done for histologic confirmation. Patient has had some persistent left breast pain she is also noticed some bruising in the upper outer quadrant of her left breast but she denies any trauma. ROS Breast Breast: No nipple discharge Exam HENMT Head: normal to inspection, normocephalic, atraumatic Mouth: moist mucous membranes, oropharynx normal Eyes General: appearance normal, both eyes and all related structures Sclera: sclerae normal Neck Neck: no lymphadenopathy noted, trachea midline Neck mass: No Thyroid: thyroid normal Lymphatic: no lymphadenopathy noted Chest Breast inspection: normal inspection of the breasts Breast Palpation: Yes normal palpation of the breasts, No change in skin, No breast mass, No nipple discharge Other: Left breast is larger than the right breast. There is more fibroglandular tissue in the upper outer quadrant of her left breast there is no discernible masses in the left upper outer quadrant of her breast. Axillary exam is negative bilaterally. Supra clavicular exam is negative bilaterally. Resp Other: Respiratory Exam: Deferred Cardio Other: Cardiac Exam: Deferred GI Other: GI Exam: Deferred Other: Rectal Exam: Deferred Extrem Other: Extremity Exam: Deferred Assessment AND Plan Problems 1. Abnormal MRI, breast R92.8 Plan We can refer her to a tertiary referral center for an MRI guided breast biopsy. I will follow her back up once this is completed Coding Level of Care Code Off vis,est,level 3 Diagnoses Abnormal MRI, breast R92.8 09/12/18 0833 <Electronically signed by Josue Parikh MD> Date Josue Parikh MD Cosigner Signature: Date (if applicable) CC: Ford Davis MD; Ford Stroud MD BREAST BILATERAL W/O Observed: 09/07/2018 Status: F Source: GENE AND W 12:43 PM [facility] REPOSITORY [facility] Imaging Services [address] [place] [address] Breast Bilateral W/O and W MR#: [id number] Acct: [id number] Name: GRISEL WINSLOW Rep #: [id number] : 1970 F 48 From: Dave Aviles MD PCP: Ford Davis MD Status: REG CLI Study: Breast Bilateral W/O and W Date of Exam: 09/07/18 Exam# [id number] Ordering Dr: Ford Stroud MD ADDENDUM by Dave Aviles MD on 09/11/18 at 1557 ADDENDUM FINDINGS: LEFT BREAST: The breast tissue is heterogeneously dense with mild background enhancement. There are a few small simple cysts. There is an extensive area of segmental non--mass enhancement in the lateral aspect of the breast, particularly in the left upper outer quadrant. As there is no mammographic or ultrasonographic abnormality, an MR-guided biopsy of this area is recommended for histologic confirmation. RIGHT BREAST: The breast tissue is heterogeneously dense with moderate background enhancement. There are a few small simple cysts. There are no abnormal enhancing masses or areas of non-mass enhancement in the left breast. There are no enlarged or abnormal lymph nodes. There is no abnormality in the visualized regions of the chest or liver. 09/11/18 1557 Date cc: Ford Davis MD; Ford Stroud MD * Signed ADDENDUM by Dave Aviles MD on 09/11/18 at 0391 MRI/Breast Bilateral W/O and W IMPRESSION: Extensive area of subsegmental non mass enhancement in the upper outer quadrant of the LEFT breast as described. As there is no mammographic or ultrasonographic abnormality corresponding to this MR abnormality, an MRI-guided biopsy is recommended for histologic confirmation. CATEGORY: BIRADS Category 4: Suspicious - Biopsy Should Be Considered. A letter regarding these results will be sent to the patient by the facility within 30 days. Electronically Signed: Dave Aviles MD at 15:57 EST , Service support , 09/11/18 1604 Date cc: Ford Davis MD; Ford Stroud MD * Signed STUDY: BILATERAL BREAST MR WITHOUT AND WITH CONTRAST REASON FOR EXAM: Female, 48 years old. Left breast pain radiating into axilla. History of breast cancer. TECHNIQUE: Multi-sequence multi-echo imaging of both breasts was performed with a dedicated breast coil. T1-weighted and T2- weighted images were performed before the administration of contrast. T1- weighted images were also performed after the administration of 10 mL of Gadavist contrast intravenously without complications. COMPARISON: Left mammogram and left breast ultrasound dated July 18, 2018. Bilateral mammogram dated February 08, 2018. FINDINGS: RIGHT BREAST: The breast tissue is heterogeneously dense with mild background enhancement. There are a few small simple cysts. There is an extensive area of segmental non--mass enhancement in the lateral aspect of the breast, particularly in the left upper outer quadrant. As there is no mammographic or ultrasonographic abnormality, an MR-guided biopsy of this area is recommended for histologic confirmation. LEFT BREAST: The breast tissue is heterogeneously dense with moderate background enhancement. There are a few small simple cysts. There are no abnormal enhancing masses or areas of non-mass enhancement in the left breast. There are no enlarged or abnormal lymph nodes. There is no abnormality in the visualized regions of the chest or liver. MRI/Breast Bilateral W/O and W IMPRESSION: Extensive area of subsegmental non mass enhancement in the upper outer quadrant of the left breast. As there is no mammographic or ultrasonographic abnormality corresponding to this MR abnormality, an MRI-guided biopsy is recommended for histologic confirmation. CATEGORY: BIRADS Category 4: Suspicious - Biopsy Should Be Considered. A letter regarding these results will be sent to the patient by the facility within 30 days. Electronically Signed: Dave Aviles MD at 16:19 EST , Service support , CC: Ford Davis MD; Ford Stroud MD Nuclear Power Plant Engineer: Signed SURGERY VISIT REPORT Observed: 07/25/2018 Status: F Source: [place] 1:25 PM [facility] REPOSITORY [facility] [address] [place] [address] OFFICE VISIT Date of Service: 07/20/18 MR#: [id number] Acct: [id number] Name: GRISEL WINSLOW Rep #: [id number] : 1970 Provider: Josue Parikh MD Age/Sex: 48/F Location: [facility] Status: Signed Intake Vital Signs07/20/18 Body Mass Index (BMI) 32.3 Intake Visit Reasons: FU Mammo/US 07/18 Lt Breast Electrical/Instrument Technician Required: No Is patient in pain?: No Allergies latex Allergy (Mild, Verified 07/20/18 13:47) redness skin irritation Medications NK 07/11/18 [History Confirmed 07/20/18] PFSH Medical History Left breast lump (Acute) Surgical [...] ultrasound of her left breast completed at [facility]. Findings showed: LEFT Breast: Once again, there [...] Josue Parikh MD> Date Josue Parikh MD [facility] Signature: Date (if applicable) CC: Ford Davis MD; Ford Stroud MD SURGERY VISIT REPORT Observed: 07/21/2018 Status: F Source: [place] 10:27 AM [facility] REPOSITORY [facility] [address] [place] [address]. [address] [place] [address] OFFICE VISIT Date of Service: 07/11/18 MR#: [id number] Acct: [id number] Name: GRISEL WINSLOW Rep #: [id number] : 1970 Provider: Josue Parikh MD Age/Sex: 48/F Location: [facility] Status: Signed Intake Vital Signs07/11/18 Height 5 ft 8 in 07/11/18 Weight: 213 lb Intake Visit Reasons: Lt Breast Fullness 2x3 cm lump US 02/08 [facility] Electrical/Instrument Technician Required: No Is patient in pain?: No Allergies latex Allergy (Mild, Verified 07/20/18 13:47) redness skin irritation Medications NK 07/11/18 [History Confirmed 07/20/18] [facility] Medical History Left breast lump (Acute) Surgical [...] breast fullness. Patient was seen by her COUPON REDEMPTION CLERK (Dr. Stroud) who felt in the upper [...] Josue Parikh MD> Date Josue Parikh MD [facility] Signature: Date (if applicable) CC: Ford Davis MD; Ford Stroud MD DIAG MAMM W/CAD, Observed: 07/18/2018 Status: F Source: [place] 9:39 AM [facility] REPOSITORY [facility] Imaging Services [address] [place] [place] [address] DIAG MAMM W/CAD, UNILAT MR#: [id number] Acct: [id number] Name: GRISEL WINSLOW Rep #: [id number] : 1970 F 48 From: Flakito Macias MD PCP: Ford Davis MD Status: REG CLI Study: DIAG MAMM W/CAD, UNILAT Date of Exam: 07/18/18 Exam# [id number] Ordering Dr: Josue Parikh MD MAMMOGRAPHY - [...] Flakito Macias MD at 12:37 EST Tel [phone], Service support , CC: Josue Parikh MD; Ford Davis MD Nuclear Power Plant Engineer: Signed BREAST LIMITED Observed: 07/18/2018 Status: F Source: [place] 9:37 AM [facility] REPOSITORY [facility] Imaging Services [address] [place] [address] Breast Limited Unilateral MR#: [id number] Acct: [id number] Name: GRISEL WINSLOW Rep #: [id number] : 1970 F 48 From: Flakito Macias MD PCP: Ford Davis MD Status: REG CLI Study: Breast Limited Unilateral Date of Exam: 07/18/18 Exam# [id number] Ordering Dr: Josue Parikh MD STUDY: ULTRASOUND [...] Flakito Macias MD at 11:24 EST Tel [phone], Service support , CC: Josue Parikh MD; Ford Davis MD Nuclear Power Plant Engineer: Signed PAP IG W/REFLEX HR Collected: 06/19/2018 Status: F Source: GENE HPV APTIMA 2:30 PM [facility] REPOSITORY Order Comment: CYTOLOGY INFORMATION: - CLINICAL INFORMATION: - DATE LMP/MENOPAUSE: 05/29/18 LMP - COLLECTION VIAL: Thin Prep Vial - MEDICAL ESTHETICIAN SOURCE: CERVICAL/ENDOCERVICAL - COLLECTION TECHNIQUE: BRUSH/SPATULA Specimen Comment: [id number] Specimen Comment: Source.............Cervix;Endocervix Specimen Comment: LMP / Prev Treat...GGH=[id number] Specimen Comment: No. of containers..01 ThinPrep Vial [...] Normal PERFORM Comment Result Comment: Carla Frances, Resaw Carriage Operator (ASCP) LAB L7400.2575 . Normal TEST METHOD [...] no HPV testing was performed. Performed at: - [facility] [id number] Agricultural Education Instructor: Isadora Hare MD, Phone: [phone] Performed By: #### L7400.0357 #### [facility] (refer to report for specific site) refer to report for address and phone number ENDOMETRIAL BX/CURETTINGS Observed: 06/19/2018 Status: F Source: [place] 12:00 AM [facility] REPOSITORY Patient: GRISEL WINSLOW : 1970 (48/F) Acct Num: [id number] Phys: Luanne VALLES,[facility] Num: [id number] Loc: [facility] Specimen: [id number] Received: 06/19/18 - 1710 Spec Type: ENDOM BX/C TISSUES 1 TISSUES: Endometrium, NOS GROSS DESCRIPTION Received in fixative is one container labeled with the patient's name and designated EM biopsy. The specimen consists of multiple fragments of hemorrhagic soft tissue that in aggregate measure 2 x 1.5 x 0.1 cm. The specimen is totally submitted in one cassette. / SARAH:alesia 06/20/18 TC:4 CPT: 80196 HEADER OPERATION: Endometrial biopsy PRE-OP DIAGNOSIS: Abnormal uterine bleeding TISSUE SUBMITTED: Endometrial biopsy MICROSCOPIC DESCRIPTION Slides are reviewed. MICROSCOPIC DIAGNOSIS Endometrial biopsy: Proliferative endometrium. SARAH:alesia 06/21/18 Signed Tariq Finney 06/21/18 <signature on file> Performed By: #### PEMB #### [facility] [address] [place], [address] BREAST LIMITED Observed: 02/08/2018 Status: F Source: [place] UN[place]AL 10:18 AM [facility] REPOSITORY [facility] Imaging Services [address] [place] [address] Breast Limited Unilateral MR#: [id number] Acct: [id number] Name: GRISEL WINSLOW Rep #: [id number] : 1970 F 47 From: Flakito Macias MD PCP: Ford Davis MD Status: REG CLI Study: Breast Limited Unilateral Date of Exam: 02/08/18 Exam# [id number] Ordering Dr: Cynthia Finley MD STUDY: ULTRASOUND [...] Flakito Macias MD at 15:10 EDT Tel [phone], Service support , CC: Cynthia Finley MD; Ford Davis MD Nuclear Power Plant Engineer: Signed DIAG MAMM W/CAD, Observed: 02/08/2018 Status: F Source: [place] BIL[place] 9:43 AM [facility] REPOSITORY [facility] Imaging Services [address] [place] [address] DIAG MAMM W/CAD, BILAT MR#: [id number] Acct: [id number] Name: GRISEL WINSLOW Rep #: [id number] : 1970 F 47 From: Flakito Macias MD PCP: Ford Davis MD Status: REG CLI Study: DIAG MAMM W/CAD, BILAT Date of Exam: 02/08/18 Exam# [id number] Ordering Dr: Cynthia Finley MD MAMMOGRAPHY - [...] Flakito Macias MD at 11:18 EDT Tel [phone], Service support , CC: Cynthia Finley MD; Ford Davis MD Nuclear Power Plant Engineer: Signed STRESS REPORT Observed: 02/03/2018 Status: F Source: [place] 11:14 AM [facility] REPOSITORY [facility] Cardiovascular Services [address] [place] [address] MR#: [id number] Acct: [id number] Name: GRISEL WINSLOW Rep #: [id number] : 1970 47 From: Terrell Ashby MD [...] 65 %. This note was generated with Jetbay software. It may contain incorrect words, spelling, and punctuation that were not noted in checking the note before signing. 02/03/18 1114 <Electronically signed by Terrell Ashby MD> Date Terrell Ashby MD CC: Ford Davis MD Date Dictated: 02/03/181108 Date Transcribed: 02/03/181108 Nuclear Power Plant Engineer: PM Signed ALLERGIES ALLERGIES DATE TYPE / CODE NAME / CODE REACTION SEVERITY SOURCE 09/12/2018 Drug latex/H16061 redness skin HI Gene [facility] Allergy/4160 8921(RXNORM) [facility] [address]207(SNOMED Repository CT) ENCOUNTERS ENCOUNTERS ADMIT/DISCHARGE ACCOUNT ADMITTING ENCOUNTER LOCATION SOURCE NUMBER CLASS 09/12/2018/ [id number] Ambulatory BMSBuilding:B Gene 9 6 [place].W[place] [facility] Repository 09/07/2018 [id number] Ambulatory Gene [facility] 4 [facility] ing:MRI Repository 07/20/2018/ [id number] Ambulatory BMSBuilding:B [facility] 8 7 [facility] Repository 07/18/2018 [id number] Ambulatory [place] Gene 9 [facility] ing:OPUS Repository 07/11/2018/ [id number] Ambulatory BMSBuilding:B [facility] 8 5 [place] Repository 06/19/2018 [id number] Ambulatory [facility] 2 [facility] ing:[facility] Repository 02/08/2018 [id number] Ambulatory Gene Gene 8 [facility] ing:OPUS Repository 02/03/2018 [id number] Ambulatory BMSBuilding:W Gene 4 [facility] Repository 02/03/2018 [id number] Ambulatory Gene Gene 2 [facility] ing:CVS Repository PAYERS PAYERS ENCOUNTER GUARANTOR PAYER SUBSCRIBER SOURCE 09/12/2018 GRISEL Warner Primary KIP R Gene [id number] S Insurance[facility] 6970-06-89MZONorth [place] Number: Repository [address]Lrq: 330 [id number] [phone] () Date:1591-59-90[address] [address]IW: 09/12/2018 Secondary NOT GIVENUNK Gene Insurance:SELF PAY [facility] Number: Effective Repository Date:2018-09-12 09/07/2018 GRISEL Warner Primary KIP R Gene [id number] S Insurance:MEDICAL NUSSBAUMDOB: [facility] 0004-48-89IKUNorth [place] Number: Repository [address]Emu: 330 [id number] [phone] () Date:5001-49-14AT[address] [address]XZ: 09/07/2018 Secondary GRISEL A [facility] Insurance:[facility] PACKAGE NUSSBAUMDOB: [facility] Number: [id number] Hospital .Effective Repository Date:2018-09-01 09/07/2018 Tertiary NOT GIVENUNK [place] Insurance:SELF PAY [facility] Number: Effective Repository Date:2018-09-01 07/20/2018 GRISEL Warner Primary KIP R [facility] [id number] S Insurance:MEDICAL NUSSBAUMDOB: [facility] [id number] [place] Number: Repository [id number]: [phone]) [id number] [phone] (HP) Date:0680-42-11NL [address] [place] [address]AX: 07/20/2018 Secondary NOT GIVENUNK Gene Insurance:SELF PAY [facility] Number: Effective Repository Date:2018-07-20 07/18/2018 GRISEL A Primary KIP R Gene [id number] S Insurance:MEDICAL NUSSBAUMDOB: [facility] [id number] [place] Number: Repository [address]Ztj: 330 [id number] [phone] (HP) Date:0599-18-12GR [address] [place] [address]AQ: 07/18/2018 Secondary GRISEL A [facility] Insurance:[facility] PACKAGE NUSSBAUMDOB: [facility] Number: [id number] Hospital .Effective Repository Date:2018-07-11 07/18/2018 Tertiary NOT GIVENUNK Gene Insurance:SELF PAY [facility] Number: Effective Repository Date:2018-07-11 07/11/2018 GRISEL A Primary KIP R [facility] [id number] S Insurance:MEDICAL NUSSBAUMDOB: [facility] [id number] [place] Number: Repository [id number]: 330 [id number] [phone] (HP) Date:2946-46-50UI [address] [place] [address]MN: 07/11/2018 Secondary NOT GIVENUNK [place] Insurance:SELF PAY [facility] Number: Effective Repository Date:2018-07-11 06/19/2018 GRISEL A Primary KIP R [place] [id number] S Insurance:MEDICAL NUSSBAUMDOB: [facility] [id number] Number: Repository [id number]: 330 [id number] [phone] (HP) Date:3461-52-63WQ [address] [place] [address]ZS: 06/19/2018 Secondary NOT GIVENUNK Gene Insurance:SELF PAY [facility] Number: Effective Repository Date:2018-06-19 02/08/2018 Grisel A Primary Kip R Gene [id number] S Insurance:MEDICAL NussbaumDOB: [facility] [id number]: Repository [id number]: 330 [id number] [phone] () Date:5036-65-64PA [address] [place] [address]OQ: 02/08/2018 Secondary Grisel A [facility] Insurance:[facility] PACKAGE NussbaumDOB: [facility]: [id number] Hospital OOOEffective Repository Date:2018-02-06 02/08/2018 Tertiary NOT GIVENUNK Gene Insurance:SELF PAY [facility] Number: Effective Repository Date:2018-02-06 02/03/2018 Grisel A Primary Kip R Gene [id number] S Insurance:MEDICAL NussbaumDOB: [facility] [id number] Number: Repository [id number]: 330 [id number] [phone] (HP) Date:2628-52-40WE [address] [place] [address]RP: 02/03/2018 Secondary Grisel A Gene Insurance:[facility] PACKAGE NussbaumDOB: [facility] PLANPolicy Number: [id number] Hospital OOOEffective Repository Date:2018-02-06 02/03/2018 Tertiary NOT GIVENUNK [place] Insurance:SELF PAY [facility] Number: Effective Repository Date:2018-02-03 02/03/2018 Grisel A Primary Arshp R Gene [id number] S Insurance:MEDICAL [facility]ussabrazo [facility] campusD[facility]: [facility] [id number] Number: Repository [id number]: [phone] [id number] [phone] () Date:7380-01-93BU [address] [place] [phone]: 02/03/2018 Secondary [place] Insurance:[facility] PACKAGE NussbaumDOB: [facility] Number: [id number] Hospital .Effective Repository Date:2018-01-30 02/03/2018 Tertiary NOT GIVENUNK Gene Insurance:SELF PAY [facility] Number: Effective Repository Date:2018-01-30
== END ==
PROVIDERS: Family Provider Family Medicine; PCP Family Medicine; Referring Provider Obstetrics & Gynecology; Visit Provider Obstetrics & Gynecology
DX: N64.4 Mastodynia (principal); Z85.3 Personal history of malignant neoplasm of breast
CPT/HCPCS: 77049; A9585; A4216; C8908

== ENCOUNTER 2018-09-19 08:00 | Emergency (ER) | payer OTHER, SELFPAY ==
[2018-09-12 07:46] VITALS: BMI 32.3
[2018-09-19 08:02] VITALS: BP 144/86; PULSE 79; RESP 20; TEMP 36.2; O2SAT 98; BMI 31.4
--- NOTE | 2018-09-19 08:32 | RAD_ITS ---
STUDY: X-RAY CHEST REASON FOR EXAM: Female, 48 years old. Dyspnea. Anxiety. TECHNIQUE: PA and lateral views of the chest. COMPARISON: None. FINDINGS: Hyperinflation. The lungs are clear. There is no demonstrated pleural abnormality. Normal size heart. Normal mediastinum and wilian. Normal visualized pulmonary arteries. Normal visualized aortic arch and descending thoracic aorta. There are degenerative changes of the visualized thoracic spine. Mild dextroscoliosis dorsal spine with a levoscoliosis of the lumbar spine. Normal visualized ribs, clavicles, and shoulders. There is no demonstrated abnormality of the visualized soft tissue structures of the upper abdomen. RAD/Chest PA and Lateral IMPRESSION: Hyperinflation. The lungs are clear. Electronically Signed: Flakito Macias MD at 9:32 EST , Service support ,
--- NOTE | 2018-09-19 08:32 | EKG12_ITS ---
Test Reason : ANXIETY Blood Pressure : / mmHG Vent. Rate : 061 BPM Atrial Rate : 061 BPM P-R Int : 146 ms QRS Dur : 086 ms QT Int : 422 ms P-R-T Axes : 074 047 049 degrees QTc Int : 424 ms Normal sinus rhythm Normal ECG Confirmed by TRACI AGUILAR MD ([id number]), assignment desk editor KENIA RUDOLPH ([id number]) on 09/22/2018 3:23:18 PM Referred By: Confirmed By:TRACI AGUILAR MD
--- NOTE | 2018-09-19 08:38 | ED.DCSUM_ITS ---
- ER Visit Summary Date of Service: 09/19/18 Chief Complaint: Palpitations History of Present Illness: The patient is a 48 F who states this morning she was lying in bed when she got a shot of adrenaline. She got the sensation that she may pass out. She states that she felt her heart racing. Her hands got sweaty and tingly. She felt that if she did not get up she was not going to get back up. She notes recently she has been under a lot of stress due to abnormal breast MRI and is supposed to have MRI guided biopsy soon. She has had a 7 pound weight loss over the past couple weeks. She has an appointment with her primary care physician this morning to discuss the symptoms. She had a similar episode yesterday that lasted 15-20 minutes. She notes that she has had episodes where her heart is slower. She has been able to sleep. She does note that she has Physical Examination: Afebrile vital signs are stable Gen: Well-nourished well-developed Head: Normocephalic atraumatic Eyes: Perrl EOMI ENT: TMs clear no rhinorrhea moist mucous membranes Neck: Supple no lymphadenopathy no JVD nontender CVS: Regular rate rhythm no murmurs normal S1-S2 Respiratory: No distress clear to auscultation bilaterally chest nontender Abdomen: Soft nontender nondistended normal bowel sounds no masses Back: Nontender Extremity: Nontender no edema Skin: Normal color no rash Neuro: alert orientated ?3 CN II-XII intact normal strength sensation reflexes gait cerebellar Psych: Anxious Test Results: EKG showed a normal sinus rhythm at a rate of 61. Chest x-ray showed a normal mediastinal silhouette. CBC is normal. Potassium slightly low at 3.3. TSH 1.44. Emergency Department Course and Treatment: Patient received a dose of Xanax. I spoke with her primary care physician and she is going to try to make her ivan ointment in 30 minutes. Patient will follow-up there. Impression: 1. Anxiety about health 2. Panic attack This note was generated with [employer] dictation software. It may contain incorrect words, spelling, and punctuation that were not noted in review of the chart prior to signing ED Disposition - Plan for ED Patient: Disposition: Home or Assisted Living Chief Complaint: Anxiety Instructions: ED Panic Attack Referrals: Ford Davis MD [Primary Care Provider] - Keep Ricardo appointment
[2018-09-19 09:06] LABS: Absolute Lymphocyte Count 0.79 X10^3/ul (0.83-4.51); Absolute Neutrophil Count 3.6 X10^3/uL (2.0-7.7); Basophil# 0.01 X10^3/uL; Basophil% 0.2 % (0-1); Eosinophil# 0.02 X10^3/uL; Eosinophils% 0.4 % (0-5); Hematocrit 39.4 % (37-47); Hemoglobin 13.1 g/dl (12.0-15.0); Lymphocyte # 0.79 X10^3/ul (4.0); Lymphocyte % 16.5 % (19-41); Mean Corp Hgb Conc 33.2 g/gl (32-36); Mean Corpuscular Volume 87.2 fL (81-99); Mean Platelet Vol. 10.1 fl (6.2-12.0); Monocyte# 0.33 X10^3/uL; Monocyte% 6.9 % (0-10); Neutrophil # 3.64 X10^3/uL (2.7-7.7); Neutrophil % 75.8 % (47-70); Platelet Count 252 K/mm3 (150-450); RBC Distribution Width CV 13.3 % (11.6-14.6); RBC Distribution Width SD 42.4 fl (35.1-43.9); Red Blood Count 4.52 M/mm3 (4.2-5.4); White Blood Count 4.8 K/mm3 (4.4-11.0)
[2018-09-19 09:07] LABS: POSITIVE COUNT NO; POSITIVE DIFFERENTIAL NO; POSITIVE MORPHOLOGY NO
[2018-09-19] MEDS: ALPRAZolam 0.5 MG Tablet PO (09:24)
[2018-09-19 09:28] VITALS: BP 145/79; PULSE 70; RESP 16; O2SAT 98
[2018-09-19 09:30] LABS: Anion Gap 13 (5-15); BUN 6 mg/dL (7-18); BUN/Creat Ratio 7.6 RATIO (10-20); Calcium,Total 8.9 mg/dL (8.5-10.1); Chloride 107 mmol/L (98-107); Creatinine, Serum 0.78 mg/dL (0.55-1.02); EST Glomerular Filtration Rate 82 mL/min (>60); Est Glom Filt Rate - Afr Amer 100 mL/min (>60); Estimated Creatinine Clearance 87.04 ml/min; Glucose 95 mg/dL (74-106); Potassium 3.3 mmol/L (3.5-5.1); Sodium Level 142 mmol/L (136-145); Thyroid Stim Hormone (TSH) 1.44 uIU/mL (0.358-3.74)
[2018-09-19 10:07] VITALS: BP 138/79; PULSE 75; RESP 18; O2SAT 98
== END 2018-09-19 10:08 | disposition home or self-care (01) ==
PROVIDERS: Emergency Provider Emergency Medicine; Family Provider Family Medicine; PCP Family Medicine
DX: F41.9 Anxiety disorder, unspecified (principal); F41.0 Panic disorder [episodic paroxysmal anxiety]; R11.0 Nausea; Z87.891 Personal history of nicotine dependence
CPT/HCPCS: 71046; 80048; 82533; 84443; 84484; 85025; 93005; 99283

== ENCOUNTER 2019-03-30 02:32 | Emergency (ER) | payer OTHER, SELFPAY ==
[2019-03-30 02:33] VITALS: BP 138/77; PULSE 70; RESP 18; TEMP 36.8; O2SAT 98; BMI 31.1
[2019-03-30 02:46] LABS: Bedside Glucose 98 mg/dL (70-110)
[2019-03-30 02:51] VITALS: BP 98/80; PULSE 68; RESP 18; O2SAT 98; BMI 31.1
--- NOTE | 2019-03-30 02:52 | EKG12_ITS ---
Test Reason : NEURO SX Blood Pressure : / mmHG Vent. Rate : 059 BPM Atrial Rate : 059 BPM P-R Int : 154 ms QRS Dur : 088 ms QT Int : 406 ms P-R-T Axes : 049 043 050 degrees QTc Int : 401 ms Sinus bradycardia Otherwise normal ECG Confirmed by LORI DONOHUE ([id number]), tape editor MAUREEN TRUONG ([id number]) on 04/02/2019 1:15:15 PM Referred By: JOAN Confirmed By:LORI DONOHUE
--- NOTE | 2019-03-30 02:55 | ED.VIS.GEN ---
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 She states she had a dysrhythmia during surgery, she had had palpitations that feel like fluttering for some time off and on before her surgery, and she has had it from time to time in the past week since her surgery. She had a Holter monitor for a couple days that she just turned in recently, she states she had minimal symptoms during that. She has felt lightheaded earlier this week and also this morning after she got up off the couch, after she called 911 for the numbness in her arms/hands which were throughout all fingers, stocking glove distribution from the elbows down. Her elbows were bent at the time when she woke up with the symptoms, with her hands on her abdomen. She did not have any weakness, headache, vision disturbance, loss of consciousness, shortness of breath. She has had brief, 1-2-second episodes of chest pain multiple times yesterday, and again during my history, once. She states she has had some other discomfort before a couple days ago on her left chest that was more like heart pain. When asked about her right leg, she states it is doing okay, she has not had an oxycodone in several days, and she is having some occasional discomfort in her calf, but not blood clot pain. When asked about these particular statements and comments, she has never had any angina, coronary disease that she knows of, or blood clots in the past. She has been getting around well. She had a follow-up visit with her surgeon who was satisfied with the postoperative status of her foot. She denies having edema of her ankle/leg. No pleuritic chest pains. Past Medical History - Allergies and Home Meds Allergies/Adverse Reactions: Allergies latex Allergy (Mild, Verified 03/30/19 02:50) redness skin irritation Primary Care Physician: Ford Davis MD [Primary Care Provider] - Surgical History: - - R bunionectomy Lives: Spouse/ Significant Other Smoking Status: Former smoker Review of Systems General: Denies: Chills, Fever, Sweats Eyes: Denies: Visual changes - bilaterally, Diplopia ENT: Denies: Rhinorrhea, Sore throat Cardiovascular: Reports: Chest pain, Palpitations Respiratory: Denies: Dyspnea, Cough, Dyspnea on exertion Gastrointestinal: Reports: Nausea - occasionally. Denies: Abdominal pain, Vomiting, Diarrhea, Melena, Hematochezia Genitourinary: Denies: Dysuria, Hematuria, Frequency Musculoskeletal: Reports: Extremity Pain. Denies: Neck pain, Back pain Skin: Denies: Rash, Wounds Neurological: Reports: Parasthesia - see HPI. gone now.. Denies: Headache, Weakness, Numbness Physical Exam Vital Signs/Narrative: Vital Signs Temp Pulse Resp BP Pulse Ox 03/30/19 02:51 68 18 98/80 98 03/30/19 02:33 98.2 F 70 18 138/77 H 98 Inital Vital Signs reviewed: Yes General: Well nourished, Well developed, No Acute Distress - well-appearing, conversive. texting on cell phone upon EMS arrival. Head: Normocephalic, Atraumatic Eyes: Perrl, EOMI ENT: Moist mucous membranes, No rhinorrhea Neck: Supple, Nontender, No lymphadenopathy, No JVD Cardiovascular: Regular rate, Regular rhythm, No murmurs, Normal S1, Normal S2, - - 2+/4 symmetric bilateral radial pulses. Brisk cap refill all toes.. Negative for: Tachycardia Respiratory: No distress, CTA bilaterally, Chest nontender Abdomen: Soft, Nontender, Nondistended, Normal bowel sounds Back: Nontender, Normal Inspection Extremities: Nontender, No edema, - - Patient has an orthotic boot on her right lower extremity that comes to her distal calf, and a dressing with a bandage throughout her foot and lower leg.. Negative for: Calf Tenderness Skin: Normal color, No rash, No Trauma, - - aging ecchymoses right toes Neurological: Alert, Oriented x3, Cranial nerves II-XII grossly intact, Normal Strength, Normal Sensation Psychological: Normal affect, Normal Mood Diagnostic/Tx/Re-eval Laboratory Tests 03/30/19 03/30/19 03/30/19 Range/Units 03:15 03:15 03:15 WBC 3.8 L (4.4-11.0) K/mm3 RBC 4.25 (4.2-5.4) M/mm3 Hgb 12.6 (12.0-15.0) g/dL Hct 36.7 L (37-47) % MCV 86.4 (81-99) fL MCH 29.6 (27.0-32.0) pg MCHC 34.3 (32-36) g/dL RDW Std Deviation 39.8 (35.1-43.9) fl RDW Coeff of Summer 12.7 (11.6-14.6) % Plt Count 209 (150-450) K/mm3 MPV 10.3 (6.2-12.0) fl Immature Gran % (Auto) 0.300 (0.0-0.9) % Neut % (Auto) 49.3 (47-70) % Lymph % (Auto) 36.5 (19-41) % Winston % (Auto) 12.3 H (0-10) % Eos % (Auto) 1.1 (0-5) % Baso % (Auto) 0.5 (0-1) % Absolute Neuts (auto) 1.9 L (2.0-7.7) X10^3/uL Absolute Lymphs (auto) 1.37 (0.83-4.51) X10^3/uL Nucleated RBC % 0 (0-5) % Differential Comment SCANNED D-Dimer Quant (PE/DVT) 0.66 H* (0.27-0.49) FEU/ug/m Sodium 143 (136-145) mmol/L Potassium 3.9 (3.5-5.1) mmol/L Chloride 108 H (98-107) mmol/L Carbon Dioxide 27.0 (21.0-32.0) mmol/L Anion Gap 8 (5-15) BUN 13 (7-18) mg/dL Creatinine 0.86 (0.55-1.02) mg/dL Estim Creat Clear Calc 78.95 ml/min Est GFR (MDRD) Af Amer 89 (>60) mL/min Est GFR (MDRD) Non-Af 74 (>60) mL/min BUN/Creatinine Ratio 15.0 (10-20) RATIO Glucose 106 (74-106) mg/dL Calcium 8.7 (8.5-10.1) mg/dL Troponin I < 0.015 (<0.045) ng/mL POC Glucose (70-110) mg/dL 03/30/19 Range/Units 02:38 WBC (4.4-11.0) K/mm3 RBC (4.2-5.4) M/mm3 Hgb (12.0-15.0) g/dL Hct (37-47) % MCV (81-99) fL MCH (27.0-32.0) pg MCHC (32-36) g/dL RDW Std Deviation (35.1-43.9) fl RDW Coeff of Summer (11.6-14.6) % Plt Count (150-450) K/mm3 MPV (6.2-12.0) fl Immature Gran % (Auto) (0.0-0.9) % Neut % (Auto) (47-70) % Lymph % (Auto) (19-41) % Winston % (Auto) (0-10) % Eos % (Auto) (0-5) % Baso % (Auto) (0-1) % Absolute Neuts (auto) (2.0-7.7) X10^3/uL Absolute Lymphs (auto) (0.83-4.51) X10^3/uL Nucleated RBC % (0-5) % Differential Comment D-Dimer Quant (PE/DVT) (0.27-0.49) FEU/ug/m Sodium (136-145) mmol/L Potassium (3.5-5.1) mmol/L Chloride (98-107) mmol/L Carbon Dioxide (21.0-32.0) mmol/L Anion Gap (5-15) BUN (7-18) mg/dL Creatinine (0.55-1.02) mg/dL Estim Creat Clear Calc ml/min Est GFR (MDRD) Af Amer (>60) mL/min Est GFR (MDRD) Non-Af (>60) mL/min BUN/Creatinine Ratio (10-20) RATIO Glucose (74-106) mg/dL Calcium (8.5-10.1) mg/dL Troponin I (<0.045) ng/mL POC Glucose 98 (70-110) mg/dL Clinical Impression(s) from Imaging Studies Chest CTA 03/30/19 03:38 IMPRESSION: Normal CTA chest examination, without a demonstrated pulmonary embolism or arterial dissection. Electronically Signed: Vijaya Bustos MD at 4:46 EDT , Service support , - Rhythm Strip Rhythm Strip: Sinus Rhythm Rate: 60 Ectopy: None - 70 - EKG Initial EKG Interpretation: Sinus Rhythm, No Acute Injury Pattern - normal EKG Prior: Unchanged - Medical Decision Making Patient presents a folder with paperwork from [facility] where she had her surgery, that includes a normal EKG and some rhythm strips with fairly frequent PVCs. She states that is what she was diagnosed with, PVCs. There is no other dysrhythmia on the paperwork that she gave. She is asking a lot of questions about the fact that her bowel movements are present but not quite back to normal, postoperative questions in general, why she was lightheaded 4 days ago and this morning. She states he has been drinking fluids and seems well-hydrated, her vital signs are normal. The Holter monitor results are certainly not available at 3 AM, and neither is an ultrasound of her right lower extremity venous system. D-dimer may certainly be abnormal but I think it is a reasonable place to start as a screening exam for pulmonary embolus/DVT, my goal is to rule out pulmonary embolus tonight as a cause for any of the symptoms. I certainly do not think she had a TIA or stroke given simultaneous bilateral symptoms in a stocking glove distribution, I suspect more likely she had tingling in her hands because of the way/position she was sleeping, which would be more of a vascular phenomenon. She has normal pulses now, there is no reason to emergently image the vasculature of her arms which are normal-appearing on exam, with soft nondistended nontender compartments, and normal pulses. Her EKG and electrolytes and troponin are normal. By history, she is not having angina. If she does not have pulmonary embolus, I feel she can safely follow-up with her surgeon and or PCP. I discussed all this with her and she is comfortable with that overall plan. Indeed, CT angiography is normal. Patient is comfortable with the above plan and will follow-up. I do not think she needs to be set up for an acute DVT evaluation right now. She states that she adjusted her boot and right lower extremity and her pain is gone. ED Disposition - Plan for ED Patient: Disposition: Home or Assisted Living Diagnosis: Paresthesia of hand, bilateral, Lightheadedness, Intermittent palpitations, Non-cardiac chest pain Instructions: CHEST PAIN, NonCardiac, Palpitations Referrals: Ford Davis MD [Primary Care Provider] - Keep Ricardo appointment (And/or other physicians)
[2019-03-30 03:20] LABS: Absolute Lymphocyte Count 1.37 X10^3/uL (0.83-4.51); Absolute Neutrophil Count 1.9 X10^3/uL (2.0-7.7); Basophil# 0.02 X10^3/uL; Basophil% 0.5 % (0-1); Eosinophil# 0.04 X10^3/uL; Eosinophils% 1.1 % (0-5); Hematocrit 36.7 % (37-47); Hemoglobin 12.6 g/dL (12.0-15.0); Lymphocyte # 1.37 X10^3/ul (4.0); Lymphocyte % 36.5 % (19-41); Mean Corp Hgb Conc 34.3 g/dL (32-36); Mean Corpuscular Hgb 29.6 pg (27.0-32.0); Mean Corpuscular Volume 86.4 fL (81-99); Mean Platelet Vol. 10.3 fl (6.2-12.0); Monocyte# 0.46 X10^3/uL; Monocyte% 12.3 % (0-10); NRBC Flagged by Analyzer 0 % (0-5); Neutrophil # 1.85 X10^3/uL (2.7-7.7); Neutrophil % 49.3 % (47-70); POSITIVE MORPHOLOGY YES; Platelet Count 209 K/mm3 (150-450); RBC Distribution Width CV 12.7 % (11.6-14.6); RBC Distribution Width SD 39.8 fl (35.1-43.9); Red Blood Count 4.25 M/mm3 (4.2-5.4); White Blood Count 3.8 K/mm3 (4.4-11.0)
[2019-03-30 03:22] LABS: Differential Indicated SCAN CRITERIA MET
[2019-03-30 03:36] LABS: Differential Comment SCANNED
[2019-03-30 03:37] LABS: D-Dimer Quantitative (DVT/PE) 0.66 FEU/ug/m (0.27-0.49)
[2019-03-30 03:38] LABS: Anion Gap 8 (5-15); BUN 13 mg/dL (7-18); Calcium,Total 8.7 mg/dL (8.5-10.1); Chloride 108 mmol/L (98-107); Creatinine, Serum 0.86 mg/dL (0.55-1.02); EST Glomerular Filtration Rate 74 mL/min (>60); Est Glom Filt Rate - Afr Amer 89 mL/min (>60); Estimated Creatinine Clearance 78.95 ml/min; Glucose 106 mg/dL (74-106); Potassium 3.9 mmol/L (3.5-5.1); Sodium Level 143 mmol/L (136-145)
--- NOTE | 2019-03-30 03:38 | CT_ITS ---
STUDY: CTA CHEST REASON FOR EXAM: Female, 48 years old. Chest pain near syncope, postop 03/23/2019 foot surgery, bilateral hand tingling and elevated d-dimer levels. Matter valve prolapse, breast cancer. RADIATION DOSAGE (If Supplied By Facility): CTDIvol = ( 12.93 ) mGy, DLP = ( 419.26 ) mGycm TECHNIQUE: The examination was performed with the intravenous administration of 100ML IV Isovue 370. Post-processing of the angiographic images was performed, with multiplanar reformation and 3D reconstruction. Individualized dose optimization techniques were used for this CT. COMPARISON: Chest x-ray PA and lateral 09/19/2018. FINDINGS: Normal enhancement of the main pulmonary artery and right and left pulmonary arteries. Normal enhancement of the bilateral peripheral pulmonary arteries. There is no demonstrated pulmonary embolism. Normal thoracic aorta and visualized great vessels. There is no demonstrated aortic dissection. Normal heart and pericardium. Normal mediastinum. Normal hilar regions. Normal visualized trachea and bronchi. The lungs are well expanded. Normal pulmonary parenchyma. Normal pleura. Normal chest wall structures. There are mild degenerative changes of thoracic spine and mild dextroscoliosis.. Normal visualized upper abdomen. CT/CTA Chest W/WO Contrast IMPRESSION: Normal CTA chest examination, without a demonstrated pulmonary embolism or arterial dissection. Electronically Signed: Vijaya Bustos MD at 4:46 EDT , Service support ,
[2019-03-30] MEDS: 0.9% Normal Saline 1,000 ML 999 ML IV (04:20)
[2019-03-30 05:14] VITALS: BP 129/77; PULSE 80; RESP 18; O2SAT 98
== END 2019-03-30 05:16 | disposition home or self-care (01) ==
PROVIDERS: Emergency Provider Emergency Medicine; Family Provider Family Medicine; PCP Family Medicine
DX: R20.2 Paresthesia of skin (principal); R00.2 Palpitations; R07.89 Other chest pain; R42 Dizziness and giddiness; Z91.040 Latex allergy status; Z87.891 Personal history of nicotine dependence
CPT/HCPCS: 71275; 80048; 82962; 84484; 85025; 85379; 93005; 96360; 99285; J7030; Q9967; A4216

== ENCOUNTER 2019-04-09 21:17 | Emergency (ER) | payer OTHER, SELFPAY ==
[2019-04-09 21:19] VITALS: BP 124/73; PULSE 66; RESP 18; TEMP 36.8; O2SAT 98; BMI 31.5
--- NOTE | 2019-04-09 21:44 | US_ITS ---
STUDY: VENOUS DOPPLER ULTRASOUND - RIGHT LOWER EXTREMITY REASON FOR EXAM: Female, 48 years old. Calf pain. TECHNIQUE: Ultrasound evaluation of the deep vein system to include moss-scale imaging and compression was performed. Moss-scale imaging and Doppler sonographic evaluation, including duplex spectral analysis and qualitative color flow sonography, was performed. COMPARISON: None. FINDINGS: Common Femoral Vein: Normal compression, spontaneity and augmentation. Normal color Doppler. Common Femoral Vein/Greater Saphenous Junction: Normal compression. Femoral Proximal: Normal compression. Femoral Middle: Normal compression, spontaneity and augmentation. Normal color Doppler. Femoral Distal: Normal compression. Popliteal Vein: Normal compression, spontaneity and augmentation. Normal color Doppler. Posterior Tibial Vein: Normal compression. Peroneal Vein: Normal compression. US/Venous Duplex Imag/Limited/Uni IMPRESSION: No demonstrated deep vein thrombosis. Electronically Signed: Amanda Evans MD at 22:27 EDT Tel , Service support ,
--- NOTE | 2019-04-09 22:27 | ED.DCSUM_ITS ---
History of Present Illness Chief Complaint: Lower Extremity Injury Detail of Chief Complaint: Right leg pain Informant: Patient Onset: Weeks Current Severity: Mild Maximum Severity: Moderate Narrative: Patient presents after having bunionectomy on March 23 at [place]. Patient has been having intermittent cramping in her calf since that time. It seems to be happening more frequently and lasting longer. She presents due to concern for DVT. She denies chest pain or shortness of breath. Past Medical History - Allergies and Home Meds Allergies/Adverse Reactions: Allergies latex Allergy (Mild, Verified 04/09/19 21:21) redness skin irritation Primary Care Physician: Ford Davis MD [Primary Care Provider] - Prior records reviewed: Yes Past Medical History: - - Reviewed Surgical History: - - R bunionectomy Smoking Status: Former smoker Review of Systems General: Denies: Chills, Fever Cardiovascular: Denies: Chest pain Respiratory: Denies: Dyspnea Gastrointestinal: Denies: Abdominal pain Musculoskeletal: Reports: Myalgias, Extremity Pain Neurological: Denies: Headache, Parasthesia Endocrine: Denies: Polyuria Hematologic: Denies: Easy bruising Allergy: Denies: Uticaria Physical Exam Vital Signs/Narrative: Vital Signs Temp Pulse Resp BP Pulse Ox 04/09/19 21:19 98.2 F 66 18 124/73 H 98 Inital Vital Signs reviewed: Yes General: Well nourished, Well developed Head: Normocephalic ENT: Moist mucous membranes Cardiovascular: Regular rate, Regular rhythm Respiratory: No distress, CTA bilaterally Abdomen: Soft, Nontender Extremities: - - Minimal calf tenderness on the right. Right foot is wrapped in Kerlix. She states the wound has been looking good. All of her pain is in the calf and posterior knee. No skin changes are noted. Skin: Normal color Neurological: Alert, Normal Strength, Normal Sensation Psychological: Normal affect Diagnostic/Tx/Re-eval - Medical Decision Making Venous ultrasound reveals no evidence of DVT. Patient is reassured with these findings. ED Disposition - Plan for ED Patient: Disposition: Home or Assisted Living Diagnosis: Strain of right knee and leg Instructions: Myalgias Referrals: Ford Davis MD [Primary Care Provider] -
== END 2019-04-09 22:45 | disposition home or self-care (01) ==
PROVIDERS: Emergency Provider Emergency Medicine; Family Provider Family Medicine; PCP Family Medicine
DX: S86.911A Strain of unspecified muscle(s) and tendon(s) at lower leg level, right leg, initial encounter (principal); R25.2 Cramp and spasm; X58.XXXA Exposure to other specified factors, initial encounter; Y93.9 Activity, unspecified; Y92.9 Unspecified place or not applicable; Y99.9 Unspecified external cause status; Z91.040 Latex allergy status; Z87.891 Personal history of nicotine dependence
CPT/HCPCS: 93971; 99282

== ENCOUNTER → 2019-05-15 07:05 | Outpatient (CLI) | payer OTHER, SELFPAY ==
[2019-04-17 14:57] VITALS: BMI 30.5
--- NOTE | 2019-05-15 07:07 | ECHOD_ITS ---
Reason For Study: MVP Procedure This was a 2D Doppler, Color Flow transthoracic echocardiogram. The exam was of adequate technical quality. Exam performed in department. Left Ventricle Normal LV size. Apical false tendon noted. Left ventricular systolic function is normal. The estimated ejection fraction is 65 %. No evidence for diastolic dysfunction. No regional wall motion abnormalities noted. Right Ventricle Normal RV size. Normal systolic function. Atria Normal left atrium. Normal right atrium. No doppler evidence for ASD. Mitral Valve There is no mitral annular calcification. Mild diffuse mitral valve thickening. Mild mitral valve prolapse, posterior leaflet. Trivial mitral valve insufficiency. Tricuspid Valve Normal tricuspid valve. Mild tricuspid valve insufficiency. Aortic Valve Trisinus/trileaflet aortic valve. Normal aortic valve. Pulmonic Valve The pulmonic valve is not well visualized. Trivial pulmonic valve insufficiency. Great Vessels The aortic root is not well visualized. Pericardium/Pleural No pericardial effusion. MMode/2D Measurements & Calculations LVIDd: 5.0 cm IVSd: 0.77 cm LA dimension: 3.0 cm LVIDs: 3.3 cm LVPWd: 0.79 cm FS: 34.0 % LAV(MOD-bp): 41.1 ml LA A4 area: 17.0 cm2 RA A4 area: 14.7 cm2 LAV(MOD-bp) Indexed: 20.1 ml/m2 LAV(MOD-sp2): 41.3 ml LAV(MOD-sp4): 40.5 ml Time Measurements MV dec time: 0.20 sec Doppler Measurements & Calculations MV E max benson: 86.1 cm/sec Lat Peak E' Benson: 12.3 cm/sec Med Peak E' Benson: 12.5 cm/sec MV A max benson: 43.8 cm/sec E/E' lat: 7.0 E/E' med: 6.9 MV E/A: 2.0 MV V2 max: 100.2 cm/sec MV P1/2t max benson: 102.1 cm/sec Ao V2 max: 113.2 cm/sec MV max P.0 mmHg MV P1/2t: 81.9 msec Ao max P.1 mmHg MV V2 mean: 46.5 cm/sec MV dec slope: 365.1 cm/sec2 MV mean P.1 mmHg MVA(P1/2t): 2.7 cm2 MV V2 VTI: 31.8 cm LV V1 max: 81.5 cm/sec PA V2 max: 81.9 cm/sec LV V1 max P.7 mmHg Interpretation Summary Left ventricular systolic function is normal. The estimated ejection fraction is 65 %. Apical false tendon noted. Mild mitral valve prolapse, posterior leaflet Mild diffuse mitral valve thickening. Trivial mitral valve insufficiency. Mild tricuspid valve insufficiency. Trivial pulmonic valve insufficiency. No evidence for diastolic dysfunction. Ordering Physician: Terrell Ashby Referring Physician: Nolberto Maier MD Performed By: Martin Omalley RCS
--- NOTE | 2019-05-15 09:38 | STRESSREP ---
Stress Test Report Date: 05-15-19 Procedure: Exercise tolerance test/imaging study Indications: Chest pain Consent: Per the patient Procedure: The patient exercised on a Jaxson protocol for 6 minutes and 30 seconds completing Stage II and 30 seconds of Stage III achieving a peak heart rate of 153 bpm (90 % predicted maximal heart rate) with a peak blood pressure 140/68 mmHg and a peak MET capacity of 7 METs. The baseline ECG demonstrated sinus bradycardia. The peak exercise ECG demonstrated no obvious ECG changes. There was an isolated PVC during exercise and a rare PAC during recovery. The functional capacity was considered average. There was no complaint of chest discomfort during exercise or recovery. The examination was discontinued secondary to foot discomfort. Impression: 1. Technically adequate (percent predicted maximal heart rate greater than 85%) exercise tolerance test 2. Peak exercise ECG with no obvious ECG changes 3. There was an isolated PVC during exercise and a rare PAC during recovery 4. Nuclear images pending Myocardial perfusion imaging study: Technique: The patient was injected with 14.1 mCi of technetium 99m Cardiolite and subsequently rest SPECT Cardiolite nuclear imaging was obtained in the horizontal long, vertical long, and short axis views. The patient exercised on a Jaxson protocol for 6 minutes and 30 seconds completing Stage II and 30 seconds of Stage III achieving a peak heart rate of 153 bpm (90 % predicted maximal heart rate) with a peak blood pressure 140/68 mmHg and a peak MET capacity of 7 METs. The patient was injected with 43.9 mCi of technetium 99m Cardiolite and subsequently stress SPECT Cardiolite nuclear imaging was obtained in the horizontal long, vertical long, and short axis views. A gated Cardiolite study at peak stress was obtained. Interpretation: Rest and stress SPECT Cardiolite nuclear imaging status post realignment, normalization, and attenuation correction, demonstrates the appearance of relative uniform tracer uptake and myocardial perfusion appearing within normal limits. There is end systolic thickening and brightening. The gated Cardiolite study demonstrates myocardial thickening and inward wall motion. The reported LVEF is 63 %. Impression: 1. Rest and stress SPECT Cardiolite nuclear imaging demonstrate relative uniform tracer uptake and myocardial perfusion appearing within normal limits. 2. The gated Cardiolite study reports an LVEF of 63 %. This note was generated with [employer] software. It may contain incorrect words, spelling, and punctuation that were not noted in checking the note before signing.
== END ==
PROVIDERS: Family Provider Family Medicine; PCP Family Medicine; Referring Provider Internal Medicine Cardiovascular Disease; Visit Provider Internal Medicine Cardiovascular Disease
DX: I34.1 Nonrheumatic mitral (valve) prolapse (principal); R07.9 Chest pain, unspecified
CPT/HCPCS: 78452; 93017; 93306; A9500; A4216

== ENCOUNTER → 2019-05-30 12:49 | Outpatient (CLI) | payer OTHER, SELFPAY ==
[2019-04-17 14:57] VITALS: BMI 30.5
--- NOTE | 2019-05-30 12:52 | RAD_ITS ---
STUDY: X-RAY - PELVIS AND BILATERAL HIPS REASON FOR EXAM: Female, 49 years old. Increasing hip and lower back pain. TECHNIQUE: AP view of the pelvis.? 2 views of the right hip, and 2 views of the left hip were obtained. COMPARISON: None. FINDINGS: There is a non-specific bowel gas pattern. Transitional last lumbar segment with a sacral articulation on the left. Moderate degenerative changes of the sacroiliac joints, left greater than right. Normal bilateral superior and inferior pubic rami. Mild degenerative narrowing in the symphysis pubis. Normal bilateral ischial tuberosities. There are osteoarthritic changes of the right femoral head with marginal osteophyte formation. There is osteoarthritic spur formation of the right acetabular rim. There is moderate articular joint space narrowing of the right hip. Minimal osteoarthritic spurring of the femoral head. Normal left acetabulum. There is mild articular joint space narrowing of the left hip. RAD/Hips B/L min 2 views w/ Pelvis IMPRESSION: A intact pelvis without fracture, osteolytic or blastic bone lesion. Moderate degenerative changes of the sacroiliac joints, left greater than right. Mild degenerative narrowing of the symphysis pubis. Mild to moderate degenerative arthrosis of the right hip. Mild to moderate degenerative arthrosis of the left hip. Electronically Signed: Jackie Husain MD at 0:02 EDT , Service support ,
--- NOTE | 2019-05-30 12:52 | RAD_ITS ---
STUDY: X-RAY - LUMBAR SPINE REASON FOR EXAM: Female, 49 years old. Increasing lower back pain and pain after wearing a boot for foot injury. History of scoliosis. TECHNIQUE: 5 view(s) of the lumbar spine were obtained. COMPARISON: Prior abdomen and pelvic CT exam of May 21, 2016 FINDINGS: Reduced lumbar lordosis with a 30 degree levoscoliosis of the lumbar spine centered at L2. Normal vertebral body height without fracture or deformity. There is a normal alignment of the vertebrae. Advanced asymmetric degenerative disc narrowing at L1 to and to a lesser extent L2-3 with marked spondylosis of L1-L2 on the right side. Additional moderate degenerative disc narrowing at most lower lumbar levels more advanced at L4-5 and L5-S1. Advanced facet arthrosis at L5-S1, L4-5 and L3-4. The soft tissue structures are unremarkable. RAD/L/S Spine Min 4 Views IMPRESSION: Straightening of the lumbar spine and a 30 degree levoscoliosis centered at L2. The alignment and scoliotic curvature of not changed significantly since the prior abdomen and pelvic CT exam of May 21, 2016. Severe asymmetric degenerative disc findings at L1 to and to a lesser extent L2-3. Additional advanced disc narrowing at L4-5 and L5-S1. Degenerative facet arthrosis primarily at L3-4, L4-5 and L5-S1. Negative for acute fracture deformity. Electronically Signed: Jackie Husain MD at 0:00 EDT , Service support ,
== END ==
PROVIDERS: Family Provider Family Medicine; PCP Family Medicine; Referring Provider Family Medicine; Visit Provider Family Medicine
DX: M25.551 Pain in right hip (principal); M54.9 Dorsalgia, unspecified
CPT/HCPCS: 72110; 73521

== ENCOUNTER → 2019-07-16 15:14 | Outpatient (CLI) | payer OTHER, SELFPAY ==
[2019-06-13 15:59] VITALS: BMI 30.7
--- NOTE | 2019-07-16 15:18 | RAD_ITS ---
STUDY: X-RAY - SOFT TISSUE NECK REASON FOR EXAM: Female, 49 years old. Pain and swelling of the left side of the neck. TECHNIQUE: 2 view(s) of the neck were obtained. COMPARISON: None. FINDINGS: Normal visualized nasopharynx, oropharynx, hypopharynx. Normal epiglottis. Normal visualized subglottic tracheal air column. Normal prevertebral soft tissue structures. There are degenerative changes of the cervical spine with cervical spondylosis. The soft tissue structures are unremarkable. RAD/Neck for Soft Tissue IMPRESSION: Degenerative disease of the cervical spine, otherwise unremarkable x-ray soft tissue neck. Electronically Signed: Elida Hdz MD at 3:13 EST , Service support ,
== END ==
PROVIDERS: Family Provider Family Medicine; PCP Family Medicine; Referring Provider Nurse Practitioner Family; Visit Provider Nurse Practitioner Family
DX: M54.2 Cervicalgia (principal)
CPT/HCPCS: 70360

== ENCOUNTER → 2019-07-18 09:32 | Outpatient (CLI) | payer OTHER, SELFPAY ==
[2019-06-13 15:59] VITALS: BMI 30.7
[2019-07-18 12:51] LABS: Hemoglobin A1c 5.3 % (4.2-6.3)
[2019-07-18 12:56] LABS: Cholesterol 161 mg/dL (200); High Density Lipoprotein 57 mg/dL; Triglycerides 35 mg/dL; Very Low Density Lipoprotein 7 mg/dL (5-40)
== END ==
PROVIDERS: Family Provider Family Medicine; PCP Family Medicine; Referring Provider Nurse Practitioner Family; Visit Provider Nurse Practitioner Family
DX: Z00.00 Encounter for general adult medical examination without abnormal findings (principal)
CPT/HCPCS: 36415; 80061; 83036

== ENCOUNTER → 2019-07-24 14:21 | Outpatient (CLI) | payer OTHER, SELFPAY ==
[2019-06-13 15:59] VITALS: BMI 30.7
[2019-07-24 17:34] LABS: Absolute Lymphocyte Count 1.75 X10^3/uL (0.83-4.51); Absolute Neutrophil Count 3.2 X10^3/uL (2.0-7.7); Basophil# 0.03 X10^3/uL; Basophil% 0.6 % (0-1); Eosinophil# 0.05 X10^3/uL; Eosinophils% 0.9 % (0-5); Hematocrit 39.3 % (37-47); Hemoglobin 12.8 g/dL (12.0-15.0); Lymphocyte # 1.75 X10^3/ul (4.0); Lymphocyte % 32.8 % (19-41); Mean Corp Hgb Conc 32.6 g/dL (32-36); Mean Corpuscular Hgb 29.2 pg (27.0-32.0); Mean Corpuscular Volume 89.5 fL (81-99); Monocyte# 0.26 X10^3/uL; Monocyte% 4.9 % (0-10); NRBC Flagged by Analyzer 0 % (0-5); Neutrophil # 3.22 X10^3/uL (2.7-7.7); Neutrophil % 60.4 % (47-70); Platelet Count 279 K/mm3 (150-450); RBC Distribution Width CV 12.4 % (11.6-14.6); RBC Distribution Width SD 40.9 fl (35.1-43.9); Red Blood Count 4.39 M/mm3 (4.2-5.4); White Blood Count 5.3 K/mm3 (4.4-11.0)
[2019-07-24 17:53] LABS: Erythrocyte Sedimentation Rate 3 mm/hr (0-30)
== END ==
PROVIDERS: Family Provider Family Medicine; PCP Family Medicine; Referring Provider Family Medicine; Visit Provider Family Medicine
DX: M54.2 Cervicalgia (principal); G25.0 Essential tremor
CPT/HCPCS: 36415; 82533; 85025; 85652

== ENCOUNTER → 2019-08-10 14:54 | Outpatient (CLI) | payer OTHER, SELFPAY ==
[2019-06-13 15:59] VITALS: BMI 30.7
--- NOTE | 2019-08-10 15:00 | BI_ITS ---
MAMMOGRAPHY - BILATERAL SCREENING 3-D TOMOSYNTHESIS REASON FOR EXAM: Female, 49 years old. BILAT SCREENING -SISTER @ AGE 48 -- SECOND SISTER WITH OVARIAN CA 54 -- MOTHER @ AGE 80 -- PAT AUNT AGE ? -- T MRI GUIDED BX''S IN TOK OF NON MASS ENHANCEMENT OCT 06, 2018=B -- 2018-pt c/o LT BREAST PAIN LATERAL SIDE AND -- LEFT ITCHY BREAST FOR YEARS ON AND OFF -- LT U/S 07/18/18=B, LT MRI 09-07-18 HERE =SUSPICIOUS, -- PAST PROGESTERONE FROM NOVEMBER-MAR 2019 -- MR 09/09/18 LT= and amp;quot;S and amp;quot; -- - STOPPED PROGESTERONE 03/2019 - PT HAS LOST 10# PERTINENT HISTORY: Sister and mother with breast cancer.. TECHNIQUE: 2-D mammograms and 3-D Tomosynthesis of the breast (s) were performed. CAD was performed. COMPARISON: 09/07/2018, 07/18/2018, 02/08/2018, 06/22/2016. FINDINGS: The breast composition is heterogeneously dense that can obscure small breast masses. Post biopsy changes on the left side. Scattered benign calcifications are seen. No dense spiculated masses or suspicious microcalcifications are identified. No architectural distortion is identified. There is no skin thickening or retraction. There has been no significant change since the prior study. BI/SCREEN MAMM (CAD) W/KIARA BILAT IMPRESSION: No mammographic signs of malignancy. Routine yearly mammograms recommended. ASSESSMENT CATEGORY: BIRADS Category 2: Benign. A letter regarding these results will be sent to the patient by the facility within 30 days. FOLLOW UP RECOMMENDATION: Yearly follow up mammogram recommended. (A) Approximately 10% of breast cancers are not detected by mammography. A normal mammogram should not delay biopsy of a clinically suspicious abnormality. Electronically Signed: Terell Ruiz MD at 16:08 EST Tel [phone], Service support ,
== END ==
PROVIDERS: Family Provider Family Medicine; PCP Family Medicine; Referring Provider Surgery; Visit Provider Surgery
DX: Z12.31 Encounter for screening mammogram for malignant neoplasm of breast (principal)
CPT/HCPCS: 77063; 77067

== ENCOUNTER 2019-08-17 11:00 | Outpatient (RCR) | payer OTHER, SELFPAY ==
[2019-04-17 14:57] VITALS: BMI 30.5
--- NOTE | 2019-04-18 13:06 | HP.PTEVAL ---
Patient's Visit Information HUMERA WINSLOW is a 49 year old F referred to Physical Therapy by RAQUEL STEINBERG with a diagnosis of R Bunionectomy. Date of Evaluation: 04/18/19 Physical Therapist: Yadira Casey DPT - Visit Plan Frequency: 2x /Week Duration: 4 Weeks Plan: Focus on improving ROM, increasing strength, and decreasing pain to improve functional activities. NWB until 05/04/19. 04/18/19 - HEP: Ankle DF/PF, Ankle INv./Ev., Ankkle ABC's, Ankle circles, toe scrunches, gastroc stretch - Subjective Findings: Hallux valgus defomity, buniectomy performed on 03/23/19 - no WB until 05/04/19. Outpatient procedure, returned home with use of boot, has help at home (3 teenage kids, husabnd). Double story home, can manage stairs, fully independent before procedure. 1 week ago visit to [facility] for blood clots - negative. Reports freq. muscle discomfort/tightness in R LE. Pain is intermittent, 1/10 currently. Pain free at times. Worst: 4/10, Aggravating: standing, showering. Relieving factors: elevation, ice at times. Pain at R toe, sharp/stabbing pain at times in front of ankle, numbness of L big toe. Describes pain as throbbing, at times can be shooting. Wears boot except for sleep, showering. 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 No exercise program currently. Is not driving returns 05/04/19. PMH: no significant concerns or changes - Objective Posture: FH, RS - was not corrected. Palpation: TTP at 1st met head and tib. ant. tendon. ROM: ANkle WFL - except for DF 10 degrees from neutral. Strength: Knee 5/5 ankle PF 4+/5, DF 3+/5 (within availabe range), EV 4+/5 Inv 4+/5 (pt. reported pain w/ ankle DF). Girth: Fig. 8 49 cm, Malleoli 22 cm, met. heads 23 cm. Sensation: WNL to gross B touch - numbness at great toe on dorsal. Incision showed no signs of infections- healing well- scabbing still intact. Flexibility: Gastroc: severe, Soleus: moderate - Goals Goal 1:: pt. will be I w/ heP & progression Goal Time Frame: 4-6 Weeks Goal 2:: Pt. will be able to ambulate >300 ft. w/ normalized gait pattern in a normal shoe Goal Time Frame: 4-6 Weeks Goal 3:: Pt. will be able to ascend/descend stairs with pain level of 0/10 and use of no handrails Goal Time Frame: 4-6 Weeks Goal 4:: Patient will demo full AROM DF Goal Time Frame: 4-6 Weeks - Rehabilitation Potential Physical Therapy Diagnosis: Pt. presents w/ hypomobility, decreased strength, edema, and pain which leads to impaired function. Rehabilitation Potential: Good - Anticipated Interventions Patient/Client Instruction: Educate patient on: Condition, Plan of Care For the Purpose of:: To decrease pain Therapeutic Exercise to Include: Strength training, Endurance training, Balance training, Body mechanics, Flexibilty training, Gait and locomotor training, Passive ROM, Active ROM, Dynamic Lumbar Stabilization For the Purpose of:: To improve muscle performance and motor function Cryotherapy (ice pack, ice massage): Yes Thermo therapy (hot pack): Yes Thank you for the opportunity to evaluate your patient. For Medicare and Medicare HMO plans, please review the plan of care and approve it. It will need to be FAXED BACK to us at [phone] for Medicare purposes. For Medicare only, by signing this I certify the plan of care. Please let me know if there are questions or concerns regarding this plan of care. Physician Signature: Date:
--- NOTE | 2019-06-11 12:11 | HP.PTEVAL2_ITS ---
Patient's Visit Information HUMERA WINSLOW is a 49 year old F referred to Physical Therapy by RAQUEL BARAKAT with a diagnosis of BACKACHE ACUTE AND CHRONIC. MILD R HIP BURSITIS. SCOLIOSIS. LLE SHORTER.. Date of Evaluation: 06/11/19 Physical Therapist: Sofia Hutchinson, PT, Cert MDT - Visit Plan Frequency: 2-3x /Week Duration: 4-6 Weeks Plan: (H/O RECENT RIGHT FOOT SURGERY AND FOOT PHYSICAL THERAPY PRIMARY CHART STILL OPEN WITH SUHA BUSTOS DPT). AQUATIC THERAPY FOR BACK, RIGHT HIP AND GROIN PAIN RELEIF, POSTURE CORRECTION/STRENGTHENING, INSTRUCTION IN APPROPRIATE BODY MECHANICS AND ACTIVITY MODIFICATIONS. DLS STARTING WITH A NEUTRAL SPINE PROGRE SSING ROM TOLERATED. SUPRIYA LE ROM, STRETCHING AND STRENGTHENING. HEP INSTRUCTION. MILDLY TIGHT HS BUT VERY TIGHT CALVES RIGHT > LEFT. FOCUS ON CORE STABILITY. 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 Disability: NO. Present symptoms: LOW BACK PAIN, LEFT THORACIC PAIN RIGHT GROIN PAIN, RIGHT HIP PAIN. RIGHT THIGH. Present since: SOMETIME AFTER FOOT SURGERY IN MAR 2019. Pain Scale: WORST 8/10, LEAST 0/10. Currently: 4/10. Commenced as a result of: NO APPARENT REASON OTHER THAN WALKING WITH RIGHT BOOT POST RIGHT FOOT SURGERY. Symptoms at onset: BACK, RIGHT HIP, RIGHT GROIN. Worse: STANDING, BENDING, LIFTING. INTERMITTENT GROIN PAIN WALKING. Better: SITTING, STRETCHING FORWARD, HIP FLEXOR STETCH. Disturbed sleep: YES - INCREASED PAIN RIGHT SDLY BUT LIKES TO SLEEP ON RIGHT SIDE FOR SCOLIOSIS TYPICALLY. Previous history/Previous treatment: CHRONIC LBP FROM SCOLIOSIS. GROIN PAIN IS NEW. LONG HISTORY WITH CHIROPRACTOR NEEDED (SPORATIC). NO BACK SURGERY. NO HIP SURGERY. NO BACK OR HIP INJECTIONS. NO PHYSICAL THERAPY FOR BACK OR HIP. Coughing/sneezing/straining: NEGATIVE. Gait: NORMAL. Difficulty initiating urinatin: NO. Accidents: NO. Unexplained weight loss: NO. Imaging: RECENT BACK AND HIP X-RAYS - DDD, VERY MILD RIGHT HIP ARTHRITIS. PMH/Recent major surgery: UNREMARKABLE. PATIENT REPORTS HER SCOLIOSIS WAS 20 DEG THE LAST SHE KNEW. OTHER: STATES SHE HAS A CHIROPRACTIC VISIT TODAY BUT WISHES SHE WOULD HAVE CANCELLED IT BECAUSE SHE REALLY DOESN'T THINK ITS HELPING MUCH ANYMORE. SEEING CHIROPRACTOR FOR FOOT AND BACK. STATES THE CHIROPRACTOR HAS HELPED HER FOOT IMMENSELY. PATIENT REPORTS SHE HAS A 1/2 INCH HEEL LIFT LEFT. STATES IT HELPS A LOT AND WEARS IT ALMOST ALL THE TIME. 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 PATIENT REPORTS SHE CAN ONLY PUT SO MUCH IN HER SHOE AND SHE IS MAXED OUT AND DOESN'T WANT TO DO ANY MORE RIGHT NOW. NOT WANTING TO FOCUS ON HEEL LIFT NOW IN PT. PATIENT REPORTS HER RIGHT FOOT STILL HURTS FROM FOOT SURGERY. - Objective Objective: Sitting/Standing Posture: FAIR. Active Correction of posture: NE. Other Observations: INDEP GAIT AND TRANSFERS INCLUDING UP AND DOWN FROM THE FLOOR. RIGHT ILIAC CREST HIGHER THAN RIGHT. Motor deficit: SUPRIYA LE'S 5/5 WITH MMT'ING BUT RIGHT FOOT NT AND HIPS: RIGHT 4/5, LEFT 4-/5 (ALTHOUGH RIGHT HIP IS PAINFUL SIDE). RIGHT DORSIFLEXION IS 5/5 BUT FOOT AND TOES NT. Sensory deficit: NO. ROM deficit: TIGHT SUPRIYA GASTROC SOLEUS COMPLEX'S RIGHT > LEFT. Reflexes: UNABLE TO ELICIT SUPRIYA QUAD REFLEX'S. BUT ACHILLES LEFT 2/3 AND RIGHT ABSENT. Dural Signs: NEGATIVE SUPRIYA LE DURAL SIGNS. Lumbar mvmt loss: flex - MOD. ext - MOD. R SG - MOD. L SG - MOD. Core strength: VERY POOR. POSITIVE RIGHT YEN TEST. - Goals Goal 1:: DECREASE C/O BACK, RIGHT HIP AND GROIN PAIN Goal Time Frame: 4-6 Weeks Goal 2:: IMPROVE STANDING, WALKING, BENDING, LIFTING, HOMEMAKING AND SLEEP FUNCTION Goal Time Frame: 4-6 Weeks Goal 3:: INSTRUCT IN PROPHYLAXIS Goal Time Frame: 4-6 Weeks - Rehabilitation Potential Rehabilitation Potential: Fair - Anticipated Interventions Patient/Client Instruction: Educate patient on: Condition, Plan of Care, Risk Factors, Benefits of Fitness Program For the Purpose of:: To improve self management Therapeutic Exercise to Include: Strength training, Body mechanics, Postural training, Flexibilty training, Dynamic Lumbar Stabilization For the Purpose of:: To decrease pain, To increase ROM, To improve muscle performance and motor function, To increase tolerance to activity/condition/position, To improve ability of physical actions for home/community/work/leisure, To improve gait and locomotor functions Thank you for the opportunity to evaluate your patient. For Medicare and Medicare HMO plans, please review the plan of care and approve it. It will need to be FAXED BACK to us at [phone] for Medicare purposes. For Medicare only, by signing this I certify the plan of care. Please let me know if there are questions or concerns regarding this plan of care. Physician Signature: Date:___
--- NOTE | 2019-08-17 12:40 | HP.PTDS(2)_ITS ---
HP - PT D/C Summary (2) It has been my pleasure to treat HUMERA WINSLOW under orders from RAQUEL BARAKAT, for the diagnosis of BACKACHE ACUTE AND CHRONIC. MILD R HIP BURSITIS. SCOLIOSIS. LLE SHORTER. for a total of 12 visit(s). Discharge Date: Please see the following information for a summary of their discharge status. - Subjective Subjective: PATIENT REPORTS 80% IMPROVEMENT IN HER BACK/HIP AND GROIN PAIN SINCE STARTING PHYSICAL THEAPY. PATIENT REPORTS UP TO 5/10 BACK/HIP/GROIN PAIN AT ITS WORST NOW. THE PAIN IS INTERMITTENT. PATIENT REPORTS ABOUT 40% IMPROVEMENT IN HER NECK PAIN SINCE STARTING PT. NECK PAIN AT ITS WORST NOW IS 3/10. STATES SHE HASN'T DONE ALL THE HOME EX'S YET BECAUSE IT HAS BEEN CRAZY BUSY WITH TONE BUT THE ONE'S SHE HAS DONE SHE ISN'T HAVING ANY TROUBLE WITH. STATES SHE HAS A HEADACHE AND JUST DOESN'T FEEL WELL OVER-ALL. STATES SHE HASN'T BEEN GETTING ENOUGH SLEEP AND DIDN'T TAKE ENOUGH IBUPROFEN TO GET RID OF HEADACHE BEFORE COMING TO PT. STILL WANTS TO TRY SOME OF THE MACHINES IN THE GYM TODAY BUT NOT A LOT OF WEIGHT OR REPS. - Overall Improvement % Improvement: 80 - Objective Objective/Function/Assessment: ALL GOALS MET. UPON EXAM TODAY: Sitting Posture/Standing Posture: FORWARD HEAD AND ROUNDED SHOULDERS. NO TORTICOLLIS. Active Correction of posture: SLIGHTLY BETTER. Motor deficit: LEFT HAND DOMINANT WITH RIGHT CLINICAL TRIAL ASSISTANT STRENGTH OF 75 LBS AND LEFT 80 LBS. SUPRIYA UE STRENGTH WITH MMT'ING 5/5. ROM: SUPRIYA UE'S WFL. Cervical Mvmt Loss: Flex: NIL. Pro: NIL. Ext: NIL. Ret: MIN. RSB: MIN. LSB: MOD. R Rot: MIN. L Rot: MIN. PATIENT DENIES PAIN WITH CERVICAL ROM TESTING ALL PLANES. Motor deficit: SUPRIYA LE'S 5/5 WITH MMT'ING. ROM deficit: NO EXCEPT RIGHT HIP ER BY APPROX 20% COMPARED TO LEFT. Dural Signs: NEGATIVE SUPRIYA LE DURAL SIGNS. Lumbar mvmt loss: flex - MIN. ext - MOD. R SG - MIN. L SG - MIN. PATIENT DENIED INCREASED PAIN WITH LUMBAR ROM TESTING. Core strength: POOR. OTHER: DISCOMFORT IN SUPRIYA POST HIPS WITH YEN TESTING AND RIGHT HIP ROM MORE LIMITED THAN LEFT. PATIENT DID WELL WITH LIGHT WEIGHTS ON GYM MACHINES TODAY WITH CORE WEAKNESS EVIDENT. - Goals Patient Goals: Improve Function, Decrease Pain, Sleep Normal, Other Other Goals: CORE AND BACK STRENGTHENING. Goal 1:: DECREASE C/O BACK, RIGHT HIP AND GROIN PAIN Goal Progress: Goal Met Goal 2:: IMPROVE STANDING, WALKING, BENDING, LIFTING, HOMEMAKING AND SLEEP FUNCTION Goal Progress: Goal Met Goal 3:: INSTRUCT IN PROPHYLAXIS Goal Progress: Goal Met Goal 4:: DECREASE C/O LEFT NECK PAIN. Goal Progress: Goal Met - Plan Plan: D/C TO INDEP EX. PATIENT AGREEABLE. - D/C Information If there are questions or concerns regarding this patient's physical therapy, please feel free to call me at [phone]. Thank you for the referral of this patient. Sincerely, Sofia Hutchinson, PT, Cert MDT
== END 2019-08-17 19:00 | disposition home or self-care (01) ==
LOC: PT 11:00
PROVIDERS: Family Provider Family Medicine; PCP Family Medicine
DX: M20.10 Hallux valgus (acquired), unspecified foot (principal)
CPT/HCPCS: 97014; 97035; 97110; 97113; 97161; 97164; 97530; A4216; G0283; J2785

== ENCOUNTER → 2019-10-02 | Outpatient (CLI) | payer OTHER, SELFPAY ==
[2019-06-13 15:59] VITALS: BMI 30.7
== END | disposition home or self-care (01) ==
LOC: LABSPEC 14:42
PROVIDERS: PCP Family Medicine; Referring Provider Family Medicine; Visit Provider Family Medicine
DX: R30.0 Dysuria (principal)
CPT/HCPCS: 87077; 87086; 87088; 87186

== ENCOUNTER → 2019-10-16 14:11 | Outpatient (CLI) | payer OTHER, SELFPAY ==
[2019-06-13 15:59] VITALS: BMI 30.7
== END ==
PROVIDERS: PCP Family Medicine; Referring Provider Family Medicine; Visit Provider Family Medicine
DX: N39.0 Urinary tract infection, site not specified (principal)
CPT/HCPCS: 87077; 87086; 87088; 87186

== ENCOUNTER → 2019-11-14 14:53 | Outpatient (CLI) | payer OTHER, SELFPAY ==
[2019-06-13 15:59] VITALS: BMI 30.7
--- NOTE | 2019-11-14 15:08 | US_ITS ---
STUDY: THYROID ULTRASOUND REASON FOR EXAM: Female, 49 years old. LT SIDED NECK PAIN TECHNIQUE: Ultrasound evaluation of the soft tissues of the left side of the neck was performed with real-time and static nichols-scale imaging. COMPARISON: None. FINDINGS: There is a 1.9 cm x 1.4 cm x 0.7 cm hypoechoic nodule in the left submandibular region. Adjacent to this, a similar appearing hypoechoic nodule measuring 1.9 cm x 1.2 cm x 0.8 cm is seen as well. These most likely represent small benign appearing lymph nodes. Follow-up is recommended. US/Head/Neck Soft Tissue IMPRESSION: 2 adjacent hypoechoic nodules in the left submandibular region suggestive of adenopathy. Follow-up is recommended. Electronically Signed: Flakito Macias, at 15:49 EDT , Service support ,
== END ==
PROVIDERS: PCP Family Medicine; Referring Provider Family Medicine; Visit Provider Family Medicine
DX: M54.2 Cervicalgia (principal)
CPT/HCPCS: 76536

== ENCOUNTER → 2019-11-20 10:46 | Outpatient (CLI) | payer OTHER, SELFPAY ==
[2019-06-13 15:59] VITALS: BMI 30.7
--- NOTE | 2019-11-20 10:58 | RAD_ITS ---
STUDY: X-RAY CHEST REASON FOR EXAM: Female, 49 years old. Cough that is getting worse x 6 weeks -- scratchy throat, pain TECHNIQUE: PA and lateral views of the chest. COMPARISON: Comparison is made with prior study dated September 19, 2018. FINDINGS: Hyperinflation. The lungs are clear. There is no demonstrated pleural abnormality. Normal size heart. Normal mediastinum and wilian. Normal visualized pulmonary arteries. Normal visualized aortic arch and descending thoracic aorta. There are mild degenerative changes of the visualized thoracic spine. Dextro scoliosis. Normal visualized ribs, clavicles, and shoulders. There is no demonstrated abnormality of the visualized soft tissue structures of the upper abdomen. RAD/Chest PA and Lateral IMPRESSION: Hyperinflation. The lungs are clear. Electronically Signed: Flakito Macias, at 13:13 EDT , Service support ,
== END ==
PROVIDERS: PCP Family Medicine; Referring Provider Family Medicine; Visit Provider Family Medicine
DX: R05 Cough (principal)
CPT/HCPCS: 71046

== ENCOUNTER → 2019-11-21 15:00 | Outpatient (CLI) | payer OTHER, SELFPAY ==
[2019-06-13 15:59] VITALS: BMI 30.7
--- NOTE | 2019-11-21 15:26 | CT_ITS ---
STUDY: CT SOFT TISSUE NECK WITH CONTRAST REASON FOR EXAM: Female, 49 years old. LT NECK MASS RADIATION DOSAGE (If Supplied By Facility): CTDIvol = ( 17.15 ) mGy, DLP = ( 458.24 ) mGycm TECHNIQUE: The patient was scanned in a multi-detector CT scanner. High resolution transaxial imaging was performed following intravenous administration of IV 100mL Isovue-370. Sagittal and coronal images were reconstructed. Individualized dose optimization techniques were used for this CT. COMPARISON: Ultrasound dated 11/14/2019 FINDINGS: There is mild lymphadenopathy noted in the left neck with the largest node measuring 1.4 x 1.2 cm in the jugular digastric region. There is no fluid collection or soft tissue mass identified. The parotid, submandibular and sublingual glands are within normal limits. The visualized lung apices are clear. The mastoid air cells are clear. The visualized paranasal sinuses are clear. The visualized intracranial structures are grossly unremarkable. There are no destructive osseous lesions. CT/Soft Tissue Neck WITH Contrast IMPRESSION: Mild left cervical lymphadenopathy which is nonspecific. A follow-up CT in 6 months is recommended. Electronically Signed: Odell Blanco, at 16:50 EDT Tel , Service support ,
== END ==
PROVIDERS: PCP Family Medicine; Visit Provider Family Medicine
DX: R22.1 Localized swelling, mass and lump, neck (principal)
CPT/HCPCS: 70491; Q9967

== ENCOUNTER → 2020-05-06 10:25 | Outpatient (CLI) | payer OTHER, SELFPAY ==
[2019-06-13 15:59] VITALS: BMI 30.7
--- NOTE | 2020-05-06 10:29 | RAD_ITS ---
HISTORY: thoracic back pain x 2 weeks, no known injury ADDITIONAL HISTORY: None provided. EXAMINATION/TECHNIQUE: XR Spine Thoracic 3 Views Number of images including paperwork: 3 COMPARISON: Chest radiograph 11/20/2019 FINDINGS: VERTEBRAE: No acute fracture. VERTEBRAL ALIGNMENT: No traumatic subluxation. Left convex lumbar scoliosis partially visible. DISKS AND JOINTS: Mild multilevel discogenic degenerative changes. SOFT TISSUES: Unremarkable paraspinous soft tissues. RAD/Thoracic Spine 3 Views IMPRESSION: Degenerative changes without acute osseous abnormality. at 0622 Reported and signed by: Teresa Mckeon MD Electronically Signed: Teresa Mckeon MD at 6:22 EDT Tel , Service support ,
== END ==
LOC: MTLAB 10:27 → MTRAD 10:27
PROVIDERS: PCP Family Medicine; Referring Provider Family Medicine; Visit Provider Family Medicine
DX: M54.6 Pain in thoracic spine (principal)
CPT/HCPCS: 72072

== ENCOUNTER → 2020-09-10 | Outpatient (CLI) | payer OTHER, SELFPAY ==
[2019-06-13 15:59] VITALS: BMI 30.7
[2020-09-15 13:53] LABS: HPV Reflexed? NOT INDICATED
== END | disposition home or self-care (01) ==
LOC: LABSPEC 10:54
PROVIDERS: PCP Family Medicine; Visit Provider Obstetrics & Gynecology
DX: Z12.4 Encounter for screening for malignant neoplasm of cervix (principal)
CPT/HCPCS: 88175; G0145

== ENCOUNTER → 2020-09-15 11:56 | Outpatient (CLI) | payer OTHER, SELFPAY ==
[2019-06-13 15:59] VITALS: BMI 30.7
--- NOTE | 2020-09-15 11:29 | BI_ITS ---
MAMMOGRAPHY - BILATERAL SCREENING REASON FOR EXAM: Female, 50 years old. Routine annual screening examination. PERTINENT HISTORY: Sisters with breast cancer. Mother with breast cancer. Aunt with breast cancer. TECHNIQUE: Digital bilateral breast kiara (3D mammographic acquisition) in the CC and MLO projections. 2-D mediolateral oblique (MLO) and craniocaudad (CC) views of both breasts were obtained. CAD: Full Field Digital Mammography with Computer Added Detection was performed. COMPARISON: Comparison is made with prior examination dated 08/10/2019 and 02/08/2018. FINDINGS: Breast Composition: The breasts are heterogeneously dense, which may obscure small masses. There are no dominant masses or suspicious calcifications. Tissue clip markers are seen in the deep central portion of the left breast. No other significant abnormalities are identified. There has been no significant change since the prior study. BI/SCRN MAMM (CAD)W/KIARA BILAT IMPRESSION: Stable bilateral screening mammogram. Yearly follow-up mammogram recommended. (A) ASSESSMENT CATEGORY: BIRADS Category 2: Benign. A letter regarding these results will be sent to the patient by the facility within 30 days. Approximately 10% of breast cancers are not detected by mammography. A normal mammogram should not delay biopsy of a clinically suspicious abnormality. [id number] Electronically Signed: Flakito Macias MD at 14:43 EST , Service support ,
== END ==
PROVIDERS: PCP Family Medicine; Referring Provider Obstetrics & Gynecology; Visit Provider Obstetrics & Gynecology
DX: Z12.31 Encounter for screening mammogram for malignant neoplasm of breast (principal)
CPT/HCPCS: 77063; 77067

== ENCOUNTER → 2020-10-09 15:32 | Outpatient (CLI) | payer OTHER, SELFPAY ==
[2020-09-17 09:37] VITALS: BMI 29.4
[2020-10-09 16:31] LABS: Absolute Lymphocyte Count 1.38 X10^3/uL (0.83-4.51); Absolute Neutrophil Count 3.6 X10^3/uL (2.0-7.7); Basophil# 0.02 X10^3/uL; Basophil% 0.4 % (0-1); Eosinophil# 0.03 X10^3/uL; Eosinophils% 0.6 % (0-5); Hematocrit 37.3 % (37-47); Hemoglobin 12.3 g/dL (12.0-15.0); Lymphocyte # 1.38 X10^3/ul (4.0); Lymphocyte % 25.8 % (19-41); Mean Corpuscular Hgb 29.5 pg (27.0-32.0); Mean Corpuscular Volume 89.4 fL (81-99); Mean Platelet Vol. 10.4 fl (6.2-12.0); Monocyte% 5.6 % (0-10); NRBC Flagged by Analyzer 0 % (0-5); Neutrophil # 3.59 X10^3/uL (2.7-7.7); Neutrophil % 67.2 % (47-70); Platelet Count 250 K/mm3 (150-450); RBC Distribution Width CV 13.1 % (11.6-14.6); RBC Distribution Width SD 42.7 fl (35.1-43.9); Red Blood Count 4.17 M/mm3 (4.2-5.4); White Blood Count 5.3 K/mm3 (4.4-11.0)
[2020-10-09 16:53] LABS: Hemoglobin A1c 5.2 % (3.8-5.6)
[2020-10-09 16:58] LABS: AST(SGOT) 14 U/L (15-37); Alanine Aminotransfer ALT/SGPT 36 U/L (13-56); Albumin, Serum 3.9 g/dL (3.2-5.0); Alkaline Phosphatase 73 U/L (45-117); Anion Gap 5 (5-15); BUN 9 mg/dL (7-18); Bilirubin, Direct 0.23 mg/dL (0.00-0.30); Chloride 106 mmol/L (98-107); Cholesterol 181 mg/dL (200); Creatinine, Serum 0.69 mg/dL (0.55-1.02); EST Glomerular Filtration Rate 94 mL/min (>60); Est Glom Filt Rate - Afr Amer 114 mL/min (>60); Glucose 87 mg/dL (74-106); High Density Lipoprotein 62 mg/dL; Potassium 4.3 mmol/L (3.5-5.1); Protein, Total 6.9 g/dL (6.4-8.2); Sodium Level 138 mmol/L (136-145); Thyroid Stim Hormone (TSH) 1.15 uIU/mL (0.358-3.74); Triglycerides 66 mg/dL; Very Low Density Lipoprotein 13 mg/dL (5-40)
== END ==
PROVIDERS: PCP Family Medicine; Referring Provider Internal Medicine Cardiovascular Disease; Visit Provider Internal Medicine Cardiovascular Disease
DX: R00.2 Palpitations (principal); R00.1 Bradycardia, unspecified; R55 Syncope and collapse; I34.1 Nonrheumatic mitral (valve) prolapse; E78.00 Pure hypercholesterolemia, unspecified
CPT/HCPCS: 36415; 80048; 80061; 80076; 83036; 84443; 85025

== ENCOUNTER → 2021-02-04 08:35 | Outpatient (CLI) | payer OTHER, SELFPAY ==
[2020-09-17 09:37] VITALS: BMI 29.4
== END ==
PROVIDERS: PCP Family Medicine; Referring Provider Nurse Practitioner Family; Visit Provider Nurse Practitioner Family
DX: R00.2 Palpitations (principal); I34.1 Nonrheumatic mitral (valve) prolapse; R00.1 Bradycardia, unspecified
CPT/HCPCS: 93225; 93226

== ENCOUNTER → 2021-02-11 13:51 | Outpatient (CLI) | payer OTHER, SELFPAY ==
[2020-09-17 09:37] VITALS: BMI 29.4
[2021-02-11 15:47] LABS: AST(SGOT) 31 U/L (15-37); Alanine Aminotransfer ALT/SGPT 50 U/L (13-56); Albumin, Serum 3.9 g/dL (3.2-5.0); Alkaline Phosphatase 63 U/L (45-117); Amylase 39 U/L (25-115); Bilirubin, Direct 0.22 mg/dL (0.00-0.30); Globulin 2.9 g/dL (2.2-4.2); Lipase 76 U/L (73-393); Protein, Total 6.8 g/dL (6.4-8.2); Thyroid Stim Hormone (TSH) 1.27 uIU/mL (0.358-3.74)
== END ==
PROVIDERS: PCP Family Medicine; Referring Provider Family Medicine; Visit Provider Family Medicine
DX: R10.9 Unspecified abdominal pain (principal)
CPT/HCPCS: 36415; 80076; 82150; 83690; 84443

== ENCOUNTER → 2021-02-11 13:57 | Outpatient (CLI) | payer OTHER, SELFPAY ==
[2020-09-17 09:37] VITALS: BMI 29.4
--- NOTE | 2021-02-11 | EMB_PTH ---
PATIENT: HUMERA WINSLOW LOC: [facility] U#:[id number] AGE/SX: 55/F ROOM: RE02/11/[address]: Dr. Ford Stroud MD : 1970 BED: DIS: SPEC #: [id number] RECD: 02/11/21 15:49 STATUS: AYDEE RERosana #: [id number] ABIODUN: 02/11/21 00:[address]: Ford Stroud DEPT: SURGICAL PATHOLOGY RECD BY: Monet Hickman ENTERED: 02/12/21 09:53 SP TYPE: ENDOM BX/C BARNEY DR: Dr. Nolberto Maier MD Tissues: Endometrium, NOS Procedures: Surgery Specimen Level IV HEADER OPERATION: Endometrial biopsy PRE-OP DIAGNOSIS: Abnormal uterine bleeding TISSUE SUBMITTED: Endometrial biopsy MICROSCOPIC DIAGNOSIS Endometrial biopsy: Early secretory endometrium with extensive glandular and stromal breakdown. SJ:alesia 02/13/2021 MICROSCOPIC DESCRIPTION Slides are reviewed. GROSS DESCRIPTION Received in fixative is one container labeled with the patient's name and designated EM biopsy. The specimen consists of multiple fragments of hemorrhagic soft tissue that in aggregate measure 3 x 2.5 x 0.3 cm. The specimen is totally submitted in one cassette. / SJ:alesia 02/12/21 TC:5 CPT: 55839
--- NOTE | 2021-02-11 14:05 | RAD_ITS ---
STUDY: X-RAY - ABDOMEN/PELVIS REASON FOR EXAM: Female, 50 years old. Abdominal pain. TECHNIQUE: AP supine and upright views of the abdomen and pelvis. COMPARISON: None. FINDINGS: Normal visualized lung bases. There is an unremarkable bowel gas pattern. Moderate amount of feces in the colon. There is no demonstrated free abdominal air. The visualized liver, spleen and kidneys are grossly normal in size and morphology. Phleboliths. Marked rotatory thoracolumbar scoliosis with osteoarthritic changes of the sacroiliac joints bilaterally. Moderate arthrosis of both hips, right slightly greater than left. RAD/Abd Inc Decub and/or Erect IMPRESSION: Moderate amount of feces in the colon. Thoracolumbar spondylosis with moderate arthrosis of both hips, right greater than left. Arthrosis of the sacroiliac joints. No acute finding. Electronically Signed: Dave Aviles MD at 10:32 EDT , Service support ,
== END ==
PROVIDERS: PCP Family Medicine; Visit Provider Obstetrics & Gynecology
DX: N93.9 Abnormal uterine and vaginal bleeding, unspecified (principal)
CPT/HCPCS: 74019; 88305

== ENCOUNTER → 2021-02-20 08:31 | Outpatient (CLI) | payer OTHER, SELFPAY ==
[2020-09-17 09:37] VITALS: BMI 29.4
--- NOTE | 2021-02-20 08:35 | US_ITS ---
STUDY: ABDOMINAL ULTRASOUND - RIGHT UPPER QUADRANT REASON FOR VISIT: Female, 50 years old ABD PAIN TECHNIQUE: Ultrasound evaluation of the right upper quadrant was performed with real-time and static nichols-scale imaging. TECHNICAL QUALITY: Adequate. COMPARISON: None. FINDINGS: Liver: The liver measures 14 cm. There is mild increased echogenicity consistent with fatty infiltration. The bile ducts are within normal limits. There is hepatic color flow. The direction of portal flow is hepatopetal. There is no demonstrated mass lesion. Gallbladder: Normal distended gallbladder. The gallbladder wall measures 1 mm. There is a negative sonographic Osborne''s sign. There is no pericholecystic fluid. There are no gallstones. Common Bile Duct (C.B.D.): The common bile duct measures 4 mm. Pancreas: Normal size of the head, body and tail of the pancreas. There is increased echogenicity of the pancreas. There is no demonstrated pancreatic mass or cyst. Right Kidney: Normal size of the right kidney. The right kidney measures 11.3 cm x 5.9 cm x 4.2 cm. Normal renal cortex. The right cortex measures 1.0 cm. There is no demonstrated renal mass or cyst. There is no right hydronephrosis. US/Abdomen Limited IMPRESSION: Mild degree of fatty infiltration the liver. Electronically Signed: Flakito Macias MD at 12:17 EDT , Service support ,
== END ==
PROVIDERS: PCP Family Medicine; Referring Provider Family Medicine; Visit Provider Family Medicine
DX: R10.9 Unspecified abdominal pain (principal)
CPT/HCPCS: 76705

== ENCOUNTER → 2021-03-23 15:34 | Outpatient (CLI) | payer OTHER, SELFPAY ==
[2020-09-17 09:37] VITALS: BMI 29.4
--- NOTE | 2021-03-23 15:43 | RAD_ITS ---
STUDY: X-RAY CHEST REASON FOR EXAM: Female, 50 years old. Cough. TECHNIQUE: Frontal and lateral views of the chest. COMPARISON: 11/20/2019. FINDINGS: The lungs are clear and expanded. There is no demonstrated pleural abnormality. Normal size heart. Normal mediastinum and wilian. Normal visualized pulmonary arteries. Normal visualized aortic arch and descending thoracic aorta. Normal visualized thoracic spine. Normal visualized ribs, clavicles, and shoulders. There is no demonstrated abnormality of the visualized soft tissue structures of the upper abdomen. RAD/Chest PA and Lateral IMPRESSION: No interval change. Normal chest. Electronically Signed: Dave Aviles MD at 10:37 EDT , Service support ,
[2021-03-23 17:47] LABS: Absolute Lymphocyte Count 1.44 X10^3/uL (0.83-4.51); Absolute Neutrophil Count 2.5 X10^3/uL (2.0-7.7); Basophil# 0.02 X10^3/uL; Basophil% 0.5 % (0-1); Eosinophil# 0.06 X10^3/uL; Eosinophils% 1.4 % (0-5); Hematocrit 37.3 % (37-47); Hemoglobin 12.3 g/dL (12.0-15.0); Lymphocyte # 1.44 X10^3/ul (0.83-4.51); Lymphocyte % 33.2 % (19-41); Mean Corpuscular Hgb 28.9 pg (27.0-32.0); Mean Corpuscular Volume 87.8 fL (81-99); Mean Platelet Vol. 10.4 fl (6.2-12.0); Monocyte# 0.33 X10^3/uL; Monocyte% 7.6 % (0-10); NRBC Flagged by Analyzer 0 % (0-5); Neutrophil # 2.48 X10^3/uL (2.7-7.7); Neutrophil % 57.1 % (47-70); Platelet Count 271 K/mm3 (150-450); RBC Distribution Width CV 11.9 % (11.6-14.6); RBC Distribution Width SD 38.7 fl (35.1-43.9); Red Blood Count 4.25 M/mm3 (4.2-5.4); White Blood Count 4.3 K/mm3 (4.4-11.0)
[2021-03-23 18:03] LABS: Erythrocyte Sedimentation Rate < 1 mm/hr (0-30)
[2021-03-23 18:08] LABS: Vitamin D,25 Hydroxy 44.9 ng/mL
[2021-03-23 18:14] LABS: CRP < 2.90 mg/L (0.0-3.0)
[2021-03-25 16:08] LABS: Endomysial Antibody IgA Negative (Negative); Immunoglobulin A 224 mg/dL (87-352)
[2021-03-25 21:25] LABS: Deamidated Gliadin IgA 6 units (0-19); Deamidated Gliadin IgG 3 units (0-19); t-Transglutaminase IgA <2 U/mL (0-3)
[2021-03-27 09:08] LABS: Beef <0.10 kU/L (Class 0); Corn <0.10 kU/L (Class 0); Egg, Whole <0.10 kU/L (Class 0); Milk (Cow) <0.10 kU/L (Class 0); Peanut <0.10 kU/L (Class 0); Pork <0.10 kU/L (Class 0); Soybean <0.10 kU/L (Class 0); Wheat <0.10 kU/L (Class 0)
[2021-03-27 13:25] LABS: Chocolate <0.10 kU/L (Class 0)
== END ==
PROVIDERS: PCP Family Medicine; Referring Provider Family Medicine; Visit Provider Family Medicine
DX: R10.9 Unspecified abdominal pain (principal); R05 Cough; E55.9 Vitamin D deficiency, unspecified
CPT/HCPCS: 71046; 82306; 82784; 83516; 85025; 85652; 86003; 86005; 86140; 86255; 86677

== ENCOUNTER → 2021-03-26 14:55 | Outpatient (CLI) | payer OTHER, SELFPAY ==
[2020-09-17 09:37] VITALS: BMI 29.4
--- NOTE | 2021-03-26 15:27 | CT_ITS ---
STUDY: CT ABDOMEN AND PELVIS WITH CONTRAST REASON FOR EXAM: Female, 50 years old. Nonspecific abdominal pain. RADIATION DOSAGE (If Supplied By Facility): CTDIvol = ( 18.50 ) mGy, DLP = ( 826.21 ) mGycm TECHNIQUE: Transaxial images were obtained from the dome of the diaphragm to the symphysis pubis with oral contrast. 100mL Isovue-300 was administered. Sagittal and coronal images were reconstructed. Individualized dose optimization techniques were used for this CT. COMPARISON: Abdominal ultrasound, 02/20/2021. CTA of the pelvis, 05/21/2016. FINDINGS: The visualized lung bases are unremarkable. The visualized portions of the heart are within normal limits. Normal liver. Normal gallbladder and extrahepatic biliary system. Normal spleen. Normal pancreas. Normal bilateral adrenal glands. Normal right kidney. Normal left kidney. Normal visualized stomach. Normal small intestine. Normal colon. There is non-visualization of the appendix. Normal abdominal aorta. Normal inferior vena cava. Normal retroperitoneum. Normal urinary bladder. Normal uterus and adnexa. There is no pelvic lymphadenopathy. No free air or free fluid is seen within the peritoneal cavity. Small umbilical hernia of omental fat. The abdominal wall is otherwise unremarkable. There are diffuse degenerative changes of the visualized lumbar spine. CT/Abdomen/Pelvis WITH Contrast IMPRESSION: No visualized abnormality of the abdomen and pelvis. Electronically Signed: Fer Celis DO at 16:01 EDT Tel [phone], Service support ,
[2021-03-26 15:31] LABS: CREATININE FINGERSTICK 1.2 mg/dL (0.55-1.02)
== END ==
PROVIDERS: PCP Family Medicine; Referring Provider Family Medicine; Visit Provider Family Medicine
DX: R10.9 Unspecified abdominal pain (principal)
CPT/HCPCS: 74177; Q9967

== ENCOUNTER → 2021-06-16 | Outpatient (CLI) | payer OTHER, SELFPAY ==
[2021-06-20 11:08] LABS: H. PYLORI STOOL AG Negative (Negative)
== END | disposition home or self-care (01) ==
LOC: LABSPEC 14:26
PROVIDERS: PCP Family Medicine; Referring Provider Internal Medicine Gastroenterology; Visit Provider Internal Medicine Gastroenterology
DX: R10.9 Unspecified abdominal pain (principal)

== ENCOUNTER → 2021-08-13 11:52 | Outpatient (CLI) | payer OTHER, SELFPAY ==
[2021-08-13 14:33] LABS: Progesterone Level 0.29 ng/mL (See Comment); Vitamin B12 496 pg/mL (211-911); Vitamin D,25 Hydroxy 65.2 ng/mL
[2021-08-13 14:35] LABS: Absolute Lymphocyte Count 1.06 X10^3/uL (0.83-4.51); Basophil# 0.02 X10^3/uL; Basophil% 0.6 % (0-1); Eosinophil# 0.04 X10^3/uL; Eosinophils% 1.2 % (0-5); Hematocrit 36.1 % (37-47); Hemoglobin 11.6 g/dL (12.0-15.0); Lymphocyte # 1.06 X10^3/ul (0.83-4.51); Lymphocyte % 31.1 % (19-41); Mean Corp Hgb Conc 32.1 g/dL (32-36); Mean Corpuscular Hgb 28.6 pg (27.0-32.0); Mean Corpuscular Volume 88.9 fL (81-99); Mean Platelet Vol. 10.7 fl (6.2-12.0); Monocyte# 0.25 X10^3/uL; Monocyte% 7.3 % (0-10); NRBC Flagged by Analyzer 0 % (0-5); Neutrophil # 2.04 X10^3/uL (2.7-7.7); Neutrophil % 59.8 % (47-70); Platelet Count 261 K/mm3 (150-450); RBC Distribution Width CV 13.3 % (11.6-14.6); RBC Distribution Width SD 43.4 fl (35.1-43.9); Red Blood Count 4.06 M/mm3 (4.2-5.4); White Blood Count 3.4 K/mm3 (4.4-11.0)
[2021-08-13 14:48] LABS: Homocysteine 5.4 umol/L (3.2-10.7)
[2021-08-13 15:26] LABS: ALB/GLOB Ratio 1.1 RATIO (0.9-2.4); AST(SGOT) 27 U/L (15-37); Alanine Aminotransfer ALT/SGPT 62 U/L (13-56); Albumin, Serum 3.6 g/dL (3.2-5.0); Alkaline Phosphatase 111 U/L (45-117); Anion Gap 8 (5-15); BUN 11 mg/dL (7-18); BUN/Creat Ratio 15.1 RATIO (10-20); Calcium,Total 8.7 mg/dL (8.5-10.1); Chloride 106 mmol/L (98-107); Cholesterol 177 mg/dL (200); Creatinine, Serum 0.73 mg/dL (0.55-1.02); EST Glomerular Filtration Rate 89 mL/min (>60); Est Glom Filt Rate - Afr Amer 107 mL/min (>60); Estradiol 150.7 pg/mL; Ferritin 26 ng/mL (8-252); Free T3 2.3 pg/mL (2.18-3.98); Globulin 3.2 g/dL (2.2-4.2); Glucose 90 mg/dL (74-106); High Density Lipoprotein 69 mg/dL; Iron 70 ug/dL (50-170); Luteinizing Hormone 29.7 mIU/mL; Potassium 3.9 mmol/L (3.5-5.1); Protein, Total 6.8 g/dL (6.4-8.2); Sodium Level 142 mmol/L (136-145); T4 Free Direct 0.99 ng/dL (0.76-1.46); Thyroid Stim Hormone (TSH) 1.51 uIU/mL (0.358-3.74); Triglycerides 41 mg/dL; Very Low Density Lipoprotein 8 mg/dL (5-40)
== END ==
PROVIDERS: PCP Family Medicine; Referring Provider Family Medicine; Visit Provider Family Medicine
DX: R53.83 Other fatigue (principal); R23.2 Flushing; Z13.220 Encounter for screening for lipoid disorders; R79.89 Other specified abnormal findings of blood chemistry
CPT/HCPCS: 36415; 80053; 80061; 82306; 82533; 82607; 82627; 82670; 82728; 82746; 83001; 83002; 83090; 83525; 83540; 84144; 84403; 84439; 84443; 84481; 85025; 85027; 82626

== ENCOUNTER 2021-09-23 09:40 | Day surgery (SDC) | payer OTHER, SELFPAY ==
--- NOTE | 2021-09-23 | GASB_PTH ---
PATIENT: HUMERA WINSLOW LOC: EN U#:[id number] AGE/SX: 51/F ROOM: RE09/23/[address]: Dr. Giovanni Calderon DO : 1970 BED: DIS: 09/23/2021 SPEC #: [id number] RECD: 09/23/21 12:24 STATUS: AYDEE PATRICIA #: [id number] ABIODUN: 09/23/21 00:[address]: Giovanni Calderon DEPT: SURGICAL PATHOLOGY RECD BY: Say Luna ENTERED: 09/24/21 08:25 SP TYPE: Gastric Bx BARNEY DR: Dr. Nolberto Maier MD Tissues: A - Gastric mucous membrane B - Esophageal mucous membrane Procedures: Surgery Specimen Level IV HEADER OPERATION: EGD ([facility] [place]) PRE-OP DIAGNOSIS: Abdominal pain TISSUE SUBMITTED: A ? Gastric antrum biopsy for H. pylori, B ? Distal esophagus biopsy MICROSCOPIC DIAGNOSIS A. Gastric antrum, biopsy: Chronic gastritis. B. Distal esophagus, biopsy: Junctional mucosa with mild chronic inflammation. Changes of reflux. No evidence of goblet cell metaplasia. See Comment. Migdalia 09/25/21 COMMENT A. The results of immunohistochemistry for Helicobacter pylori will be reported separately ([id number]). B. AB/PAS stain with matched control supports the diagnosis. MICROSCOPIC DESCRIPTION Slides are reviewed. GROSS DESCRIPTION A. Received is one container labeled with the patient name and designated gastric antrum biopsy. The specimen consists of one irregular fragment of light olivia soft tissue that measures 0.5 x 0.3 x 0.1 cm. The specimen is totally submitted in one cassette. B. Received is one container labeled with the patient name and designated distal esophagus biopsy. The specimen consists of multiple irregular fragments of light olivia soft tissue that together measure 0.7 x 0.5 x 0.1 cm. The specimen is totally submitted in one cassette. AM:mike 09/24/2021 TC:3 CPT: 78814w9,50353
--- NOTE | 2021-09-23 10:06 | HP.PCM_ITS ---
History and Physical Date of Admission: 09/23/21 51 F who presents to the office today for further evaluation of belching. She has been having problems with belching since August. Initially she had some nausea and dyspepsia. It progressed to belching and almost vomiting. She has been having symptoms of indigestion with not a lot of heartburn. She was started on PPI therapy with 40 mg of pantoprazole once a day. She had purchased a [id number]-lexwfkd Nexium which she was taking 20 mg of twice a day without any real relief of her symptoms. She had added famotidine to her regimen. She has been trying to titrate off of all acid suppression due to the fact that she is not have any reflux disease but now she is getting rebound heartburn. This was originally given to her secondary to her upper GI symptoms that she was experiencing without reflux. She does not know why she was on dual therapy. I told her that I suspect is secondary to treat atypical presentations of a common disease.. She did have some chest pain which was possibly identified as a gastrointestinal issue instead of a cardiac issue after her cardiac work-up. She also has problems with a rectocele. She says that her rectocele is not large but it has led to her needing to push in the peritoneum in order to evacuate her bowels. She has never had rectal manometry. All her children were born naturally without . ROS ENT ENT: Positive for tinnitus (R Eat) and nasal congestion Resp Respiratory: Positive for cough Gastro GI: Positive for belching and other (Indigestion) Genitourinary-Female: Positive for urinary incontinence and genital itching Musc Musculoskeletal: Positive for joint pain, back pain, muscle weakness, numbness, stiffness, tingling and restless legs Neuro Neurology: Positive for numbness, tingling, restless legs and tremor(s) Psych Psychiatric: Positive for anxiety and Positive for depression Exam Const General: cooperative and comfortable Nutritional Appearance: average body habitus and well nourished [facility] Head: normal to inspection Ears: hearing grossly normal bilaterally Nose: external nose normal Face and sinus: normal facial exam Mouth: oral mucosae normal Throat: posterior oropharynx normal Eyes General: appearance normal, both eyes and all related structures Neck Neck: normal visual inspection Chest Chest palpation & inspection: normal inspection of the chest and normal palpation of entire chest wall Resp Effort & Inspection: normal respiratory effort Auscultation: Bilateral: Clear to Auscultation Cardio Palpation: normal PMI Rate: regular rate Rhythm: regular rhythm GI Inspection: normal to inspection Auscultation: normal bowel sounds Percussion: normal to percussion Palpation: no hepatosplenomegaly Skin General: no rashes or lesions noted Neuro General: patient alert Extrem General: normal to inspection Psych Affect: normal affect Quality Reporting Tobacco Screening ([facility] 138) Smoking Status: Former smoker Assessment and Plan Assessment and Plan (1) Abdominal pain: Status: Acute Comment: Abdominal pain will be evaluated with upper endoscopy. Orders: Orders: H. PYLORI STOOL AG Today Plan - Dr. Davila Friend, DO: Since last visit she has quit taking famotidine and Miralax. Experienced some rebound reflux and this has since resolved. Bloating and indigestion still present, but to a lesser degree. She did a baking soda test she saw online to test the amount acid produced and she states acid production is low according to this. She has some concerns that her stool is yellow/orange with ribbon like consistency and a chemical like odor. She has strong feelings about not utilizing PPI medications. Ordered colonoscopy and EGD during last visit and she has some more questions that she would like addressed. She is also Concerned about Propofol -last time this was utilized she was very cold. Would like stool tested for H.Pylori. I have re-examined the patient. There are no clinical changes since date of exam.
[2021-09-23 10:20] VITALS: BP 139/75; PULSE 70; RESP 18; TEMP 36.7; O2SAT 99; BMI 28.1
[2021-09-23] MEDS: Lactated Ringers 1,000 ML 15 ML IV (10:20)
[2021-09-23 10:21] LABS: Internal QC Validated? YES +Cl - CLEAR BKGD; Pregnancy, Urine Negative Negative
--- NOTE | 2021-09-23 10:45 | IMM_PTH ---
PATIENT: HUMERA WINSLOW LOC: EN U#:[id number] AGE/SX: 51/F ROOM: RE09/23/[address]: Dr. Giovanni Calderon DO : 1970 BED: DIS: 09/23/2021 SPEC #: [id number] RECD: 09/24/21 09:11 STATUS: AYDEE PATRICIA #: [id number] ABIODUN: 09/23/21 10:[address]: Giovanni Calderon DEPT: IMMUNOHISTOCHEMISTRY RECD BY: Maria De Jesus Velasquez ENTERED: 09/24/21 09:11 SP TYPE: IMMUNO OTHR DR: Dr. Nolberto Maier MD Tissues: A - Stomach, NOS Procedures: H Pylori (initial) PHYSICIAN & INSTITUTION [place] [id number] SPECIMEN INFORMATION: Tissue Source: A ? Gastric antrum Clinical Info: Abdominal pain Specimen Number: [id number] CPT code: 15400 METHODOLOGY: Deparaffinized sections of prefer/formalin-fixed tissue or PAP/DQ stained slides are incubated with monoclonal/polyclonal antibodies/oligonucleotide probes. Localization is made via biotin free immunoperoxidase method. Appropriate controls are performed and reacted as expected. Results on target cell population are indicated in the following table: RESULTS: ANTIBODY / CLONE RESULT Block A H Pylori (polyclonal) negative These tests were developed and their performance characteristics determined by [facility]. They may not have been cleared or approved by the U.S. Food and Drug Administration. The FDA has determined that such clearance or approval is not necessary. INTERPRETATION: A. Gastric antrum, biopsy: Negative for Helicobacter pylori organisms. AM:mike 09/25/2021
[2021-09-23 11:10] VITALS: BP 130/55; BP 139/75; PULSE 64; RESP 16; TEMP 37.2; O2SAT 97
--- NOTE | 2021-09-23 11:10 | OP.EGD_ITS ---
Patient Name: Grisel Tim Procedure Date: 09/23/2021 10:39 AM Date of : 1970 Age: 51 Procedure: Upper GI endoscopy Indications: Suspected esophageal reflux, Failure to respond to medical treatment Providers: Giovanni Calderon DO Referring MD: Giovanni Calderon DO Medicines: See the Anesthesia note for documentation of the administered medications Patient Profile: This is a 51 year old female. Refer to note in patient chart for documentation of history and physical. Patient has symptoms of acute heartburn. Complications: No immediate complications. Procedure: Pre-Anesthesia Assessment: - Prior to the procedure, a History and Physical was performed, and patient medications and allergies were reviewed. The patient is competent. The risks and benefits of the procedure and the sedation options and risks were discussed with the patient. All questions were answered and informed consent was obtained. Patient identification and proposed procedure were verified by the physician in the pre-procedure area. Mental Status Examination: alert and oriented. Airway Examination: normal oropharyngeal airway and neck mobility. Respiratory Examination: clear to auscultation. CV Examination: normal. Prophylactic Antibiotics: The patient does not require prophylactic antibiotics. Prior Anticoagulants: The patient has taken no previous anticoagulant or antiplatelet agents. After reviewing the risks and benefits, the patient was deemed in satisfactory condition to undergo the procedure. The anesthesia plan was to use moderate sedation / analgesia (conscious sedation). Immediately prior to administration of medications, the patient was re-assessed for adequacy to receive sedatives. The heart rate, respiratory rate, oxygen saturations, blood pressure, adequacy of pulmonary ventilation, and response to care were monitored throughout the procedure. The physical status of the patient was re-assessed after the procedure. After obtaining informed consent, the endoscope was passed under direct vision. Throughout the procedure, the patient's blood pressure, pulse, and oxygen saturations were monitored continuously. The gastroscope was introduced through the mouth, and advanced to the second part of duodenum. The upper GI endoscopy was accomplished without difficulty. The patient tolerated the procedure well. Moderate Sedation: Moderate (conscious) sedation was administered by the endoscopy nurse and supervised by the endoscopist. The patient's oxygen saturation, heart rate, blood pressure and response to care were monitored. Total physician intraservice time was 15 minutes. Scope In: 11:00:07 AM Scope Out: 11:04:36 AM Total Procedure Duration Time 0 hours 4 minutes 29 seconds Findings: Localized mild mucosal changes characterized by congestion and smoothness were found in the distal esophagus. Biopsies were taken with a cold forceps for histology. Verification of patient identification for the specimen was done. Estimated blood loss was minimal. There was laxity in the lower esophageal sphincter. A few 5 mm sessile polyps with no bleeding and no stigmata of recent bleeding were found in the gastric fundus. A few localized, 5 mm non-bleeding erosions were found in the gastric body. There were no stigmata of recent bleeding. Biopsies were taken with a cold forceps for histology. Verification of patient identification for the specimen was done. Estimated blood loss was minimal. The second portion of the duodenum was normal. Impression: - Congested, smooth mucosa in the esophagus. Biopsied. - A few gastric polyps. - Non-bleeding erosive gastropathy. Biopsied. - Normal second portion of the duodenum. Recommendation: - Discharge patient to home. - Resume previous diet. - Continue present medications. - Await pathology results. - Return to my office. Procedure Code(s): --- Professional --- 94541, Esophagogastroduodenoscopy, flexible, transoral; with biopsy, single or multiple 95447, 59, Moderate sedation services provided by the same physician or other qualified health children's zoo caretaker performing the diagnostic or therapeutic service that the sedation supports, requiring the presence of an independent trained observer to assist in the monitoring of the patient's level of consciousness and physiological status; initial 15 minutes of intraservice time, patient age 5 years or older CPT copyright 2017 [employer]. All rights reserved. The codes documented in this report are preliminary and upon energy specialist review may be revised to meet current compliance requirements. Giovanni Calderon DO 09/23/2021 11:10:15 AM This report has been signed electronically. Number of Addenda: 1 Note Initiated On: 09/23/2021 10:39 AM Addendum Number: 1 Addendum Date: 05/10/2022 6:56:56 AM MAC was used for sedation during this procedure. Giovanni Calderon DO 05/10/2022 6:57:00 AM This report has been signed electronically.
--- NOTE | 2021-09-23 11:11 | OP.CCLET_ITS ---
05/10/2022 Jim Maier [address] [place] [address] Re : Upper GI endoscopy procedure for Grisel Tim Dear Dr. Maier This procedure was performed on Thursday, September 23, 2021. My impressions and recommendations are as follows: Impressions : - Congested, smooth mucosa in the esophagus. Biopsied. - A few gastric polyps. - Non-bleeding erosive gastropathy. Biopsied. - Normal second portion of the duodenum. Recommendations : - Discharge patient to home. - Resume previous diet. - Continue present medications. - Await pathology results. - Return to my office. My findings are described in the full procedure note, which is enclosed. If I can be of further assistance, please feel free to contact me at . Sincerely, Giovanni Calderon, 09/23/2021 11:10:15 AM This report has been signed electronically.
[2021-09-23 11:15] VITALS: BP 113/89; BP 139/75; PULSE 62; RESP 16; O2SAT 99
[2021-09-23 11:20] VITALS: BP 126/81; BP 139/75; PULSE 63; RESP 16; O2SAT 97
[2021-09-23 11:25] VITALS: BP 136/68; BP 139/75; PULSE 63; RESP 16; TEMP 36.9; O2SAT 98
--- NOTE | 2021-09-23 11:44 | SUR.PHASEI ---
Dr de la torre at bedside to see pt. bakari to d/c from [facility] and go to phase two.
== END 2021-09-23 23:59 | disposition home or self-care (01) ==
LOC: EN 09:41 → AC 09:42
PROVIDERS: Anesthesiology; PCP Family Medicine; Referring Provider Internal Medicine Gastroenterology; Visit Provider Internal Medicine Gastroenterology
PROC: 0DJ08ZZ Inspection of Upper Intestinal Tract, Via Natural or Artificial Opening Endoscopic (ICD-10-PCS; CPT 43235; principal; 2021-09-23 10:40)
DX: K29.50 Unspecified chronic gastritis without bleeding (principal); K21.9 Gastro-esophageal reflux disease without esophagitis; K31.7 Polyp of stomach and duodenum; I34.1 Nonrheumatic mitral (valve) prolapse; I10 Essential (primary) hypertension; M19.90 Unspecified osteoarthritis, unspecified site; Z79.899 Other long term (current) drug therapy; Z87.891 Personal history of nicotine dependence
CPT/HCPCS: 43239; 81025; 87426; 88305; 88342; C9803; J7120; J2405

== ENCOUNTER 2021-10-01 11:00 | Outpatient (CLI) | payer OTHER, SELFPAY ==
--- NOTE | 2021-10-01 11:03 | BI_ITS ---
MAMMOGRAPHY - BILATERAL SCREENING REASON FOR EXAM: Female, 51 years old. Routine annual screening examination. PERTINENT HISTORY: Sister with breast cancer. Mother with breast cancer. Aunt with breast cancer. Prior MRI guided breast biopsy on the left breast. TECHNIQUE: Digital bilateral breast kiara (3D mammographic acquisition) in the CC and MLO projections. 2-D mediolateral oblique (MLO) and craniocaudad (CC) views of both breasts were obtained. CAD: Full Field Digital Mammography with Computer Added Detection was performed. COMPARISON: Comparison is made with prior study dated 09/15/2020 and 08/10/2019. FINDINGS: Breast Composition: The breasts are heterogeneously dense, which may obscure small masses. There are no dominant masses or suspicious calcifications. 2 tissue markers are seen in the central upper lateral and central deep aspect of the left breast. No other significant abnormalities are identified. BI/SCRN MAMM (CAD)W/KIARA BILAT IMPRESSION: Stable bilateral screening mammogram. Yearly follow-up mammogram recommended. (A) ASSESSMENT CATEGORY: BIRADS Category 2: Benign. A letter regarding these results will be sent to the patient by the facility within 30 days. Approximately 10% of breast cancers are not detected by mammography. A normal mammogram should not delay biopsy of a clinically suspicious abnormality. [id number] Electronically Signed: Flakito Macias MD at 12:16 EST ,
== END 2021-10-01 23:59 | disposition home or self-care (01) ==
LOC: OPBI 11:00
PROVIDERS: PCP Family Medicine; Referring Provider Obstetrics & Gynecology; Visit Provider Obstetrics & Gynecology
DX: Z12.31 Encounter for screening mammogram for malignant neoplasm of breast (principal); Z70.3 Counseling related to combined concerns regarding sexual attitude, behavior and orientation
CPT/HCPCS: 77063; 77067

== ENCOUNTER → 2021-12-25 | Outpatient (CLI) | payer OTHER, SELFPAY ==
--- NOTE | 2021-12-25 13:00 | MRI_ITS ---
STUDY: BILATERAL BREAST MR WITHOUT AND WITH CONTRAST REASON FOR EXAM: Female, 51 years old. History of left breast biopsy. Left breast discomfort. Family history of breast cancer. TECHNIQUE: Multi-sequence multi-echo imaging of both breasts was performed with a dedicated breast coil. T1-weighted and T2-weighted images were performed before the administration of contrast. T1-weighted images were also performed after the intravenous administration of 18 cc of Dotarem contrast. COMPARISON: Bilateral mammograms dated 10/01/2021 and 09/15/2020. FINDINGS: RIGHT BREAST: The breast tissue is heterogeneously dense with minimal background enhancement. There are no abnormal enhancing masses or areas of non-mass enhancement in the right breast. LEFT BREAST: The breast tissue is heterogeneously dense with minimal background enhancement. There are no abnormal enhancing masses or areas of non-mass enhancement in the left breast. There are no enlarged or abnormal lymph nodes. There is no abnormality in the visualized regions of the chest or liver. MRI/Breast Bilateral W/O and W IMPRESSION: No abnormality of the breast MRI with contrast. Annual screening mammogram recommended. CATEGORY: BIRADS Category 2: Benign. A letter regarding these results will be sent to the patient by the facility within 30 days. Electronically Signed: Dave Aviles MD at 9:53 EDT ,
== END | disposition home or self-care (01) ==
LOC: MRI 12:39
PROVIDERS: PCP Family Medicine; Referring Provider Obstetrics & Gynecology; Visit Provider Obstetrics & Gynecology
DX: R92.2 Inconclusive mammogram (principal); N60.29 Fibroadenosis of unspecified breast; Z80.3 Family history of malignant neoplasm of breast
CPT/HCPCS: 77049; A9575; A4216; C8908

== ENCOUNTER → 2022-02-09 | Outpatient (CLI) | payer OTHER, SELFPAY ==
[2022-02-09 18:04] LABS: Estradiol < 11.0 pg/mL; Follicle Stimulating Hormone 59.7 mIU/mL; Free T3 2.8 pg/mL (2.18-3.98); T4 Free Direct 1.11 ng/dL (0.76-1.46); Thyroid Stim Hormone (TSH) 1.23 uIU/mL (0.358-3.74)
[2022-02-09 18:14] LABS: Progesterone Level 0.29 ng/mL (See Comment)
== END | disposition home or self-care (01) ==
LOC: MTLAB 13:36
PROVIDERS: PCP Family Medicine; Referring Provider Specialist; Visit Provider Specialist
DX: N95.1 Menopausal and female climacteric states (principal); R53.83 Other fatigue
CPT/HCPCS: 36415; 82627; 82670; 83001; 84144; 84403; 84439; 84443; 84481; 82626

== ENCOUNTER → 2022-03-12 | Outpatient (CLI) | payer OTHER, SELFPAY ==
[2022-03-12 18:05] LABS: Iron 116 ug/dL (50-170)
[2022-03-12 18:26] LABS: Vitamin D,25 Hydroxy 51.6 ng/mL
[2022-03-15 08:07] LABS: Progesterone Level 5.53 ng/mL (See Comment)
== END | disposition home or self-care (01) ==
LOC: MTLAB 16:34
PROVIDERS: PCP Family Medicine; Referring Provider Family Medicine; Visit Provider Family Medicine
DX: R53.83 Other fatigue (principal); E55.9 Vitamin D deficiency, unspecified
CPT/HCPCS: 36415; 82306; 82670; 83540; 84144; 84403

== ENCOUNTER → 2022-03-15 | Outpatient (CLI) | payer OTHER, SELFPAY ==
--- NOTE | 2022-03-15 12:02 | RAD_ITS ---
STUDY: SCOLIOSIS SURVEY. REASON FOR EXAM: Female, 51 years old. SCOLIOSIS TECHNIQUE: AP and lateral views of the thoracic and lumbar spine were obtained. COMPARISON: None. FINDINGS: There is evidence of a levoscoliosis of the lumbar spine measuring 26 degrees centered at the L3-L4 level. RAD/Scoliosis 2 or 3 views IMPRESSION: Levoscoliosis of the lumbar spine centered at the L3-L4 level measuring 26 degrees. Electronically Signed: Flakito Macias MD at 14:24 EDT ,
== END | disposition home or self-care (01) ==
PROVIDERS: PCP Family Medicine; Referring Provider Family Medicine; Visit Provider Family Medicine
DX: M41.9 Scoliosis, unspecified (principal)
CPT/HCPCS: 72082

== ENCOUNTER → 2022-05-10 | Outpatient (CLI) | payer OTHER, SELFPAY ==
[2022-05-10 18:49] LABS: Hematocrit 37.1 % (37-47); Hemoglobin 12.1 g/dL (12.0-15.0); Mean Corp Hgb Conc 32.6 g/dL (32-36); Mean Corpuscular Hgb 29.8 pg (27.0-32.0); Mean Corpuscular Volume 91.4 fL (81-99); Mean Platelet Vol. 10.6 fl (6.2-12.0); Platelet Count 263 K/mm3 (150-450); RBC Distribution Width CV 12.6 % (11.6-14.6); RBC Distribution Width SD 41.9 fl (35.1-43.9); Red Blood Count 4.06 M/mm3 (4.2-5.4); White Blood Count 5.2 K/mm3 (4.4-11.0)
[2022-05-10 19:08] LABS: Vitamin B12 284 pg/mL (211-911); Vitamin D,25 Hydroxy 53.9 ng/mL
[2022-05-10 19:12] LABS: Ferritin 31 ng/mL (8-252); Iron 75 ug/dL (50-170)
== END | disposition home or self-care (01) ==
LOC: MTLAB 15:19
PROVIDERS: PCP Family Medicine; Referring Provider Family Medicine; Visit Provider Family Medicine
DX: R53.81 Other malaise (principal)
CPT/HCPCS: 36415; 82306; 82607; 82728; 83540; 85027

== ENCOUNTER → 2022-05-26 | Outpatient (CLI) | payer OTHER, SELFPAY ==
--- NOTE | 2022-05-26 17:24 | RAD_ITS ---
STUDY: X-RAY - ABDOMEN/PELVIS REASON FOR EXAM: Female, 52 years old. Right sided abdominal pain and lower abdominal pressure. TECHNIQUE: AP supine and upright views of the abdomen and pelvis. COMPARISON: CT the abdomen and pelvis, 03/26/2021. FINDINGS: Normal visualized lung bases. There is an unremarkable bowel gas pattern. There is no demonstrated free abdominal air. The visualized liver, spleen and kidneys are grossly normal in size and morphology. Normal soft tissue structures. Again seen is levoscoliosis and degenerative changes of the thoracic spine. Stable degenerative changes of the hips. RAD/Abd Inc Decub and/or Erect IMPRESSION: No acute intraabdominal process. Electronically Signed: Fer Celis DO at 17:56 EDT ,
== END | disposition home or self-care (01) ==
LOC: MTRAD 17:22
PROVIDERS: PCP Family Medicine; Referring Provider Family Medicine; Visit Provider Family Medicine
DX: R10.9 Unspecified abdominal pain (principal)
CPT/HCPCS: 74019

== ENCOUNTER → 2022-05-28 | Outpatient (CLI) | payer OTHER, SELFPAY ==
[2022-05-28 17:41] LABS: Progesterone Level 3.51 ng/mL (See Comment)
[2022-05-28 17:50] LABS: Estradiol 36.8 pg/mL; Free T3 2.7 pg/mL (2.18-3.98); Thyroid Stim Hormone (TSH) 0.66 uIU/mL (0.358-3.74)
== END | disposition home or self-care (01) ==
PROVIDERS: PCP Family Medicine
DX: N95.1 Menopausal and female climacteric states (principal); E03.8 Other specified hypothyroidism
CPT/HCPCS: 36415; 82670; 84144; 84403; 84439; 84443; 84481

== ENCOUNTER → 2022-08-20 | Outpatient (CLI) | payer OTHER, SELFPAY ==
[2022-08-20 18:07] LABS: Progesterone Level 7.96 ng/mL (See Comment); Vitamin B12 766 pg/mL (211-911); Vitamin D,25 Hydroxy 44.3 ng/mL
[2022-08-20 18:10] LABS: Estradiol 78.2 pg/mL; Ferritin 31 ng/mL (8-252); Thyroid Stim Hormone (TSH) 0.71 uIU/mL (0.358-3.74)
== END | disposition home or self-care (01) ==
LOC: MTLAB 15:04
PROVIDERS: PCP Family Medicine; Referring Provider Specialist; Visit Provider Specialist
DX: E03.9 Hypothyroidism, unspecified (principal); N95.1 Menopausal and female climacteric states; R53.83 Other fatigue; E55.9 Vitamin D deficiency, unspecified
CPT/HCPCS: 36415; 82306; 82607; 82670; 82728; 84144; 84403; 84443; 84481

== ENCOUNTER → 2022-09-28 | Outpatient (CLI) | payer SELFPAY ==
[2022-09-28 15:52] LABS: Progesterone Level 3.86 ng/mL (See Comment)
[2022-09-28 17:17] LABS: ALB/GLOB Ratio 1.2 RATIO (0.9-2.4); AST(SGOT) 18 U/L (15-37); Alanine Aminotransfer ALT/SGPT 40 U/L (13-56); Albumin, Serum 3.7 g/dL (3.2-5.0); Alkaline Phosphatase 82 U/L (45-117); Anion Gap 7 (5-15); BUN 10 mg/dL (7-18); Calcium,Total 8.9 mg/dL (8.5-10.1); Chloride 107 mmol/L (98-107); Creatinine, Serum 0.83 mg/dL (0.55-1.02); EST Glomerular Filtration Rate 76 mL/min (>60); Est Glom Filt Rate - Afr Amer 92 mL/min (>60); Free T3 2.9 pg/mL (2.18-3.98); Globulin 3.1 g/dL (2.2-4.2); Glucose 91 mg/dL (74-106); Protein, Total 6.8 g/dL (6.4-8.2); Sodium Level 140 mmol/L (136-145); T4 Free Direct 0.99 ng/dL (0.76-1.46); Thyroid Stim Hormone (TSH) 1.07 uIU/mL (0.358-3.74)
== END | disposition home or self-care (01) ==
PROVIDERS: PCP Family Medicine; Referring Provider Family Medicine; Visit Provider Family Medicine
DX: R20.9 Unspecified disturbances of skin sensation (principal)
CPT/HCPCS: 36415; 80053; 82670; 84144; 84403; 84439; 84443; 84481

== ENCOUNTER → 2022-12-07 | Outpatient (CLI) | payer SELFPAY ==
--- NOTE | 2022-12-07 12:04 | BI_ITS ---
MAMMOGRAPHY - BILATERAL SCREENING REASON FOR EXAM: Female, 52 years old. Routine annual screening examination. PERTINENT HISTORY: Sister with breast cancer. Mother with breast cancer. TECHNIQUE: Digital bilateral breast kiara (3D mammographic acquisition) in the CC and MLO projections. 2-D mediolateral oblique (MLO) and craniocaudad (CC) views of both breasts were obtained. CAD: Full Field Digital Mammography with Computer Added Detection was performed. COMPARISON: Comparison is made with prior examination dated October 01, 2021 and September 15, 2020. FINDINGS: Breast Composition: The breasts are heterogeneously dense, which may obscure small masses. There are no dominant masses or suspicious calcifications. A tissue clip marker is seen in the upper deep lateral aspect of the left breast as well as in the deep central portion of the left breast. No other significant abnormalities are identified. There has been no significant change since the prior study. BI/SCRN MAMM (CAD)W/KIARA BILAT IMPRESSION: Stable bilateral screening mammogram. Yearly follow-up mammogram recommended. (A) ASSESSMENT CATEGORY: BIRADS Category 2: Benign. A letter regarding these results will be sent to the patient by the facility within 30 days. Approximately 10% of breast cancers are not detected by mammography. A normal mammogram should not delay biopsy of a clinically suspicious abnormality. [id number] Electronically Signed: Flakito Macias MD at 14:14 EDT ,
== END | disposition home or self-care (01) ==
PROVIDERS: PCP Family Medicine; Referring Provider Obstetrics & Gynecology; Visit Provider Obstetrics & Gynecology
DX: Z12.31 Encounter for screening mammogram for malignant neoplasm of breast (principal); Z80.3 Family history of malignant neoplasm of breast
CPT/HCPCS: 77063; 77067

== ENCOUNTER → 2023-09-20 | Outpatient (CLI) | payer OTHER, SELFPAY ==
[2023-09-20 16:01] LABS: Vitamin D,25 Hydroxy 64.4 ng/mL
[2023-09-20 17:33] LABS: Estradiol 124.2 pg/mL; Free T3 2.2 pg/mL (2.18-3.98); T4 Free Direct 1.09 ng/dL (0.76-1.46); Thyroid Stim Hormone (TSH) 2.12 uIU/mL (0.358-3.74)
== END | disposition home or self-care (01) ==
PROVIDERS: PCP Family Medicine; Referring Provider Nurse Practitioner Family; Visit Provider Nurse Practitioner Family
DX: E03.9 Hypothyroidism, unspecified (principal); E55.9 Vitamin D deficiency, unspecified; N95.1 Menopausal and female climacteric states
CPT/HCPCS: 36415; 82306; 82670; 84144; 84403; 84439; 84443; 84481

== ENCOUNTER → 2024-01-12 | Outpatient (CLI) | payer OTHER, SELFPAY ==
--- NOTE | 2024-01-12 09:42 | BD_ITS ---
STUDY: DUAL ENERGY X-RAY ABSORPTIOMETRY / DXA REASON FOR EXAM: Female, 53 years old. N95.9 TECHNIQUE: Bone Mineral Density (BMD) measurements of lumbar spine and bilateral hips were obtained. COMPARISON: None. FINDINGS: Lumbar Spine (L1-L4): g/cm2 (1.211) / T-score (1.8) / Z-score (2.8) Findings are suggestive of normal bone density with a low fracture risk. Left Femur Total: g/cm2 (0.904) / T-score (-0.3) / Z-score (0.4) Left Femoral Neck: g/cm2 (0.773) / T-score (-0.7) / Z-score (0.4) Right Femur Total: g/cm2 (0.960) / T-score (0.2) / Z-score (0.9) Right Femoral Neck: g/cm2 (0.809) / T-score (-0.4) / Z-score (0.7) BD/Dexa Bone Density Study IMPRESSION: The patient is considered normal as outlined below according to World Raj Organization (WHO) criteria with a low fracture risk. Reference Information: The T-score is the number of standard deviations above or below the standard which is normal for young adults at their peak bone mineral density. The World Health Organization (WHO) interprets the T-scores as follows: Above -1 Normal bone density Between -1 and -2.5 Osteopenia Equal to / or below -2.5 Osteoporosis As a practical clinical guideline, osteopenia may be graded as follows: Mild -1 through -1.5 Moderate -1.6 through -2.0 Severe -2.1 through -2.4 The Z-score is the number of standard deviations above or below age-matched controls. A Z-score of less than -1.5 would be considered abnormal. References: 1. NIH Osteoporosis and Related Bone Diseases www osteo.org 2. International Society for Clinical Densitometry www iscd.org 3. National Osteoporosis Foundation www nof.org Electronically Signed: Flakito Macias MD at 11:07 EDT ,
== END | disposition home or self-care (01) ==
LOC: OPBD 09:21
PROVIDERS: PCP Family Medicine; Referring Provider Nurse Practitioner Family; Visit Provider Nurse Practitioner Family
DX: N95.9 Unspecified menopausal and perimenopausal disorder (principal)
CPT/HCPCS: 77080

== ENCOUNTER → 2024-03-07 | Outpatient (CLI) | payer OTHER, SELFPAY ==
[2024-03-07 18:37] LABS: Estradiol 119.6 pg/mL; Free T3 2.5 pg/mL (2.18-3.98); T4 Free Direct 1.03 ng/dL (0.76-1.46); Thyroid Stim Hormone (TSH) 1.24 uIU/mL (0.358-3.74)
[2024-03-09 12:09] LABS: PROGESTERONE 1.9 ng/mL (.)
== END | disposition home or self-care (01) ==
PROVIDERS: PCP Family Medicine; Referring Provider Specialist; Visit Provider Specialist
DX: E03.9 Hypothyroidism, unspecified (principal); N95.1 Menopausal and female climacteric states
CPT/HCPCS: 36415; 82670; 84144; 84403; 84439; 84443; 84481

== ENCOUNTER → 2024-08-14 | Outpatient (CLI) | payer OTHER, SELFPAY ==
[2024-08-14 15:38] LABS: Vitamin B12 577 pg/mL (211-911); Vitamin D,25 Hydroxy 70.2 ng/mL
[2024-08-14 15:44] LABS: Estradiol 157.1 pg/mL; Free T3 2.7 pg/mL (2.18-3.98)
[2024-08-17 04:06] LABS: PROGESTERONE 2.6 ng/mL (.)
[2024-08-19 15:06] LABS: Testosterone, % Free 2.38 % (0.50-2.80); Testosterone, Free 9.73 ng/dL (0.10-0.85); Testosterone, Total 409 ng/dL (4-50)
== END | disposition home or self-care (01) ==
LOC: MTLAB 13:47
PROVIDERS: PCP Family Medicine; Referring Provider Specialist; Visit Provider Specialist
DX: E55.9 Vitamin D deficiency, unspecified (principal); N95.1 Menopausal and female climacteric states; R53.83 Other fatigue
CPT/HCPCS: 36415; 82306; 82607; 82627; 82670; 84144; 84402; 84403; 84439; 84443; 84481; 82626

== ENCOUNTER → 2024-11-13 | Outpatient (CLI) | payer BC, SELFPAY ==
[2024-11-13 16:13] LABS: Absolute Lymphocyte Count 1.08 X10^3/uL (0.83-4.51); Absolute Neutrophil Count 2.1 X10^3/uL (2.0-7.7); Basophil# 0.03 X10^3/uL; Basophil% 0.9 % (0-1); Eosinophil# 0.07 X10^3/uL; Hematocrit 40.6 % (37-47); Hemoglobin 13.7 g/dL (12.0-15.0); Lymphocyte # 1.08 X10^3/ul (0.83-4.51); Lymphocyte % 30.7 % (19-41); Mean Corp Hgb Conc 33.7 g/dL (32-36); Mean Corpuscular Hgb 30.2 pg (27.0-32.0); Mean Corpuscular Volume 89.6 fL (81-99); Mean Platelet Vol. 11.2 fl (6.2-12.0); Monocyte# 0.25 X10^3/uL; Monocyte% 7.1 % (0-10); NRBC Flagged by Analyzer 0 % (0-5); Neutrophil # 2.07 X10^3/uL (2.7-7.7); Neutrophil % 58.7 % (47-70); Platelet Count 226 K/mm3 (150-450); RBC Distribution Width CV 12.9 % (11.6-14.6); RBC Distribution Width SD 42.4 fl (35.1-43.9); Red Blood Count 4.53 M/mm3 (4.2-5.4); White Blood Count 3.5 K/mm3 (4.4-11.0)
[2024-11-13 17:02] LABS: ALB/GLOB Ratio 1.9 RATIO (0.9-2.4); AST(SGOT) 15 U/L (<=31); Alanine Aminotransfer ALT/SGPT 14 U/L (<=34); Albumin, Serum 4.2 g/dL (3.5-5.0); Alkaline Phosphatase 64 U/L (35-104); Anion Gap 11 (5-15); BUN 11 mg/dL (4-19); BUN/Creat Ratio 16.7 RATIO (10-20); Calcium,Total 8.8 mg/dL (7.6-11.0); Carbon Dioxide 23.3 mmol/L (21.0-32.0); Chloride 103 mmol/L (98-108); Creatinine, Serum 0.68 mg/dL (0.70-1.20); EST Glomerular Filtration Rate 96 (>60); Globulin 2.2 g/dL (2.2-4.2); Glucose 93 mg/dL (70-99); Iron 76 ug/dL (50-170); Iron Binding Capacity,Unsat 152 ug/dL (228-428); Potassium 3.9 mmol/L (3.3-5.1); Protein, Total 6.4 g/dL (5.9-8.4); Sodium Level 137 mmol/L (133-145); Total Bilirubin 0.46 mg/dL (0.00-1.30)
[2024-11-13 17:28] LABS: Ferritin 199 ng/mL (22-378); Free T3 1.8 pg/mL (2.18-3.98)
[2024-11-13 22:07] LABS: Iron Binding Capacity,Total 228 ug/dL (250-450); PERCENT IRON SATURATION 33.3 % (13-59)
[2024-11-15 08:09] LABS: PROGESTERONE 2.6 ng/mL (.)
== END | disposition home or self-care (01) ==
PROVIDERS: PCP Family Medicine
DX: N95.1 Menopausal and female climacteric states (principal); E03.9 Hypothyroidism, unspecified; R53.83 Other fatigue; Z13.29 Encounter for screening for other suspected endocrine disorder; E55.9 Vitamin D deficiency, unspecified
CPT/HCPCS: 36415; 80053; 82525; 82670; 82728; 83525; 83540; 83550; 84144; 84402; 84403; 84439; 84443; 84480; 84481; 84482; 84630; 85025; 86376; 86800

== ENCOUNTER → 2025-01-09 | Outpatient (CLI) | payer BC, SELFPAY ==
[2025-01-09 12:04] LABS: Free T3 2.9 pg/mL (2.18-3.98)
[2025-01-10 04:07] LABS: PROGESTERONE 3.4 ng/mL (.)
== END | disposition home or self-care (01) ==
PROVIDERS: PCP Family Medicine; Referring Provider Specialist; Visit Provider Specialist
DX: E03.9 Hypothyroidism, unspecified (principal); N95.1 Menopausal and female climacteric states
CPT/HCPCS: 36415; 82670; 84144; 84403; 84439; 84443; 84481

== ENCOUNTER → 2025-03-06 | Outpatient (CLI) | payer BC, SELFPAY ==
[2025-03-06 19:00] LABS: Free T3 3.0 pg/mL (2.18-3.98)
[2025-03-08 04:07] LABS: PROGESTERONE 0.9 ng/mL (.)
== END | disposition home or self-care (01) ==
LOC: MTLAB 15:12
PROVIDERS: PCP Family Medicine; Referring Provider Specialist; Visit Provider Specialist
DX: E03.9 Hypothyroidism, unspecified (principal); N95.1 Menopausal and female climacteric states
CPT/HCPCS: 36415; 82670; 84144; 84403; 84439; 84443; 84481